=== PATIENT | female | born 1985 | race Caucasian/White ===

== ENCOUNTER 2024-09-11 18:25 | Inpatient (IN) | payer OTHER, SELFPAY ==
[2024-09-11 18:26] VITALS: BP 125/98; PULSE 94; RESP 15; TEMP 36.8; O2SAT 99; BMI 38.7
--- NOTE | 2024-09-11 19:10 | CT_ITS ---
We are attempting to reach an attending provider to discuss findings. An addendum with communication details will be sent when the communication is complete. EXAM: CT ABDOMEN AND PELVIS WITH INTRAVENOUS CONTRAST CLINICAL INDICATION: jaundice TECHNIQUE: Helically acquired images were obtained of the abdomen and pelvis with intravenous contrast. This CT exam was performed using one or more of the following dose reduction techniques: automated exposure control, adjustment of the mA and/or kV according to patient size, and/or use of iterative reconstruction technique. CONTRAST: IV 100mL Isovue-370 RADIATION DOSE: CTDIvol = 15.75 mGy, DLP = 1212.87 mGy-cm. COMPARISON: No relevant prior studies available. FINDINGS: LOWER THORAX: Unremarkable. Lung bases are clear. No cardiomegaly. No significant pericardial effusion. ABDOMEN: LIVER: Unremarkable. Homogeneous. No focal mass. GALLBLADDER AND BILE DUCTS: There is prominent common duct dilatation to 2 stones in the distal common duct, the most distal and larger stone just proximal to the ampulla and measures 7 mm x 5 mm x 4 mm. Slightly more proximal stone is roughly 4 mm. Mid and inferior portion of the duct is 1.2 cm, proximal common duct. At least 1.5 cm. There is diffuse mild-moderate intrahepatic duct dilatation. The gallbladder is markedly distended, 7 cm AP, with at least 3 dependent small stones in the body, and distended tortuous cystic duct. No cystic duct or neck stone is seen. The gallbladder wall is 2.6 mm despite distention, appears slightly thickened considering the prominent gallbladder distention. PANCREAS: Unremarkable. No focal cystic or solid mass. SPLEEN: Unremarkable. Normal size without focal cystic or solid mass. ADRENALS: Unremarkable. No nodules. KIDNEYS AND URETERS: Unremarkable. Normal renal size and position. No hydronephrosis. STOMACH AND BOWEL: Mildly prominent gas in multiple small bowel loops suggesting ileus. Only mild stool in the right colon, mild-moderate gas in most of the colon and rectum. No stomach or bowel distention. No focal inflammatory change. PELVIS: APPENDIX: Normal retrocecal appendix is seen. BLADDER: Unremarkable. REPRODUCTIVE: Tampon in the vagina. Presumed dominant follicle in the right ovary, it appears fairly simple, roughly 2 cm x 2.2 cm x 1.9 cm. ABDOMEN and PELVIS: INTRAPERITONEAL SPACE: Unremarkable. No ascites or other fluid collection. No free air. BONES/JOINTS: Unremarkable. No suspicious lytic or blastic abnormality. SOFT TISSUES: Unremarkable. No discrete abdominal or pelvic wall hernia. VASCULATURE: Unremarkable. Abdominal aorta is non-dilated. LYMPH NODES: Unremarkable. No enlarged lymph nodes. CT/Abdomen/Pelvis W IV Cont ONLY IMPRESSION: 1. Choledocholithiasis, 2 stones in the distal common duct. 2. Prominent intrahepatic and extrahepatic biliary distention. 3. Marked gallbladder distention and cholelithiasis. Subjectively slightly thickened gallbladder wall considering the marked gallbladder distention. 4. 2 cm dominant right ovarian follicle. This does not require additional evaluation. 5. Mild ileus. Electronically Signed: Ana M Arreaga MD at 22:05 EST ,
[2024-09-11 19:24] LABS: Absolute Lymphocyte Count 1.87 X10^3/uL (0.83-4.51); Absolute Neutrophil Count 4.4 X10^3/uL (2.0-7.7); Basophil% 1.4 % (0-1); Eosinophils% 4.1 % (0-5); Hematocrit 39.8 % (37-47); Hemoglobin 13.2 g/dL (12.0-15.0); Lymphocyte # 1.87 X10^3/ul (0.83-4.51); Lymphocyte % 25.4 % (19-41); Mean Corp Hgb Conc 33.2 g/dL (32-36); Mean Corpuscular Hgb 28.1 pg (27.0-32.0); Mean Corpuscular Volume 84.7 fL (81-99); Mean Platelet Vol. 9.9 fl (6.2-12.0); Monocyte% 9.5 % (0-10); NRBC Flagged by Analyzer 0 % (0-5); Neutrophil # 4.37 X10^3/uL (2.7-7.7); Neutrophil % 59.3 % (47-70); Platelet Count 324 K/mm3 (150-450); RBC Distribution Width CV 15.1 % (11.6-14.6); RBC Distribution Width SD 46.7 fl (35.1-43.9); White Blood Count 7.4 K/mm3 (4.4-11.0)
[2024-09-11 19:38] LABS: ALB/GLOB Ratio 0.7 RATIO (0.9-2.4); AST(SGOT) 160 U/L (15-37); Alanine Aminotransfer ALT/SGPT 291 U/L (13-56); Albumin, Serum 3.5 g/dL (3.2-5.0); Alkaline Phosphatase 218 U/L (45-117); Anion Gap 6 (5-15); BUN 8 mg/dL (7-18); BUN/Creat Ratio 8.7 RATIO (10-20); Calcium,Total 9.7 mg/dL (8.5-10.1); Chloride 101 mmol/L (98-107); Creatinine, Serum 0.92 mg/dL (0.55-1.02); EST Glomerular Filtration Rate 72 mL/min (>60); Est Glom Filt Rate - Afr Amer 87 mL/min (>60); Estimated Creatinine Clearance 94.73 ml/min; Globulin 4.7 g/dL (2.2-4.2); Glucose 102 mg/dL (74-106); Lipase 16 U/L (13-75); Potassium 3.8 mmol/L (3.5-5.1); Protein, Total 8.2 g/dL (6.4-8.2); Sodium Level 134 mmol/L (136-145)
[2024-09-11 19:47] LABS: Internal QC Validated? YES +Cl - CLEAR BKGD; Pregnancy, Serum, hCG Quali. NEGATIVE Negative
--- NOTE | 2024-09-11 20:29 | EDS_ITS ---
HPI <XENA Short - Last Filed: 09/11/24 21:42> History of Present Illness Chief Complaint: Abn Labs Narrative Narrative: Patient presenting today due to concerns for jaundice that started about a week ago. She reports that she initially noticed her urine was becoming darker in color, she then noticed her eyes turn yellow and her skin was becoming yellow. She contacted her PCP who ordered labs and ultrasound, she had that performed today and was told that she had stones in her gallbladder and to come to the emergency department for evaluation. She denies any history of abdominal surgery, alcohol use, fevers, chills, abdominal pain, nausea, and vomiting. She denies any chronic medical conditions. PFSH <XENA Short - Last Filed: 09/11/24 21:42> [facility] Medical History Basal cell carcinoma Medical History no medical history Allergy/AdvReac Type Severity Reaction Status Date / Time No Known Allergies Allergy Verified 09/11/24 18:26 Surgical History no surgical history Social History Smoking Status: Never smoker ROS <XENA Short - Last Filed: 09/11/24 21:42> ROS ED Constitutional Constitutional ED: Denies chills or fever(s) Cardiovascular Cardiovascular: Denies chest pain Respiratory/Chest Respiratory/Chest: Denies dyspnea Gastrointestinal Gastrointestinal: Denies abdominal pain, diarrhea, nausea or vomiting Genitourinary Genitourinary ED: Denies dysuria, hematuria or urinary urgency Musculoskeletal Musculoskeletal: Denies arthralgias or myalgias Integumentary Denies rash Neurologic Neurologic: Denies weakness EXAM <XENA Short - Last Filed: 09/11/24 21:42> Physical Exam Const Vital Signs: 09/11/24 18:26 09/11/24 18:43 09/11/24 20:42 Temperature 98.2 F Temperature Source Temporal Pulse Rate 94 79 Respiratory Rate 15 16 Respiratory Effort Normal Respiratory Pattern Normal Blood Pressure 125/98 H 117/70 Blood Pressure Mean 107 85 Pulse Ox 99 98 Oxygen Delivery Method Room Air Positive well nourished, well developed and no apparent distress General Appearance ED: well developed HEENT Reports normocephalic and head/scalp atraumatic HEENT Narrative: Scleral icterus Mouth ED: Yes moist mucous membranes normal Eyes PERRL and EOMs intact bilaterally Neck full ROM and supple Chest Wall inspection of chest normal Resp normal respiratory effort and clear to auscultation bilaterally Cardio regular rate and regular rhythm GI soft to palpation, non-tender, non-distended and no masses Back/Spine normal ROM and normal to inspection Extremity normal to inspection and full ROM Neuro oriented x3, CN's II-XII intact bilaterally, moves all extremities, no focal motor deficits and no sensory deficits noted Sensorium / Orientation: awake and alert Psych mental status grossly normal and thought process normal Skin no rashes or lesions noted and no wounds <Dr. Ian Enriquez DO - Last Filed: 09/11/24 21:44> Physical Exam Const Vital Signs: 09/11/24 18:26 09/11/24 18:43 09/11/24 20:42 Temperature 98.2 F Temperature Source Temporal Pulse Rate 94 79 Respiratory Rate 15 16 Respiratory Effort Normal Respiratory Pattern Normal Blood Pressure 125/98 H 117/70 Blood Pressure Mean 107 85 Pulse Ox 99 98 Oxygen Delivery Method Room Air [facility] <XENA Short - Last Filed: 09/11/24 21:42> [facility] Narrative Medical decision making narrative: Patient presenting today with jaundice that started last week. She had an ultrasound of her right upper quadrant performed today that was reviewed on clinisync and shows distended gallbladder, calculi present at the gallbladder neck and a dilated common bile duct at 11.2 mm. Labs obtained here. Her CBC is unremarkable, her sodium is 134, total bilirubin is 10.10, AST 160, ALT 291, alkaline phosphatase 218. CT scan of the abdomen and pelvis obtained, this shows choledocholithiasis. Dr. Jesus was consulted, patient given IV Zosyn. She will be admitted in stable condition. Lab Data Attestation: I reviewed the patient's lab results. Labs: Laboratory Results - last 24 hr 09/11/24 09/11/24 09/11/24 19:15 19:30 20:41 WBC 7.4 RBC 4.70 Hgb 13.2 Hct 39.8 MCV 84.7 MCH 28.1 MCHC 33.2 RDW Std Deviation 46.7 H RDW Coeff of Nayan 15.1 H Plt Count 324 MPV 9.9 Immature Gran % (Auto) 0.300 Neut % (Auto) 59.3 Lymph % (Auto) 25.4 [place] % (Auto) 9.5 Eos % (Auto) 4.1 Baso % (Auto) 1.4 H Absolute Neuts (auto) 4.4 Absolute Lymphs (auto) 1.87 Nucleated RBC % 0 Sodium 134 L Potassium 3.8 Chloride 101 Carbon Dioxide 27.0 Anion Gap 6 BUN 8 Creatinine 0.92 Estim Creat Clear Calc 94.73 Est GFR (MDRD) Af Amer 87 Est GFR (MDRD) Non-Af 72 BUN/Creatinine Ratio 8.7 L Glucose 102 Calcium 9.7 Total Bilirubin 10.10 H AST 160 H ALT 291 H Alkaline Phosphatase 218 H Total Protein 8.2 Albumin 3.5 Globulin 4.7 H Albumin/Globulin Ratio 0.7 L Lipase 16 Serum , Qual NEGATIVE Urine Color Yellow Urine Clarity Clear Urine pH 6.0 Ur Specific [place] 1.005 Urine Protein Negative Urine Glucose (UA) Normal Urine Ketones 5 H Urine Occult Blood 150 H Urine Nitrite Negative Urine Bilirubin 1 H Urine Urobilinogen 1 H Ur Leukocyte Esterase Negative Urine RBC 5-10 SEEN Urine WBC Not Reportable Ur Squamous Epith Cells 0-5 SEEN Urine Bacteria RARE Urine Mucus 0 SEEN <Dr. Ian Enriquez, DO - Last Filed: 09/11/24 21:44> [facility] Narrative Medical decision making narrative: Patient presenting today with jaundice that started last week. She had an ultrasound of her right upper quadrant performed today that was reviewed on clinisync and shows distended gallbladder, calculi present at the gallbladder neck and a dilated common bile duct at 11.2 mm. Labs obtained here. Her CBC is unremarkable, her sodium is 134, total bilirubin is 10.10, AST 160, ALT 291, alkaline phosphatase 218. CT scan of the abdomen and pelvis obtained, this shows choledocholithiasis. Dr. Jesus was consulted, patient given IV Zosyn. She will be admitted in stable condition. I have personally performed a face to face assessment of the patient and have reviewed the SARA Note. I performed a substantive portion of the visit including all aspects of the following. My crafword findings include: History is 38-year-old female presenting to the emergency room with painless jaundice. Patient states she had a gallbladder ultrasound performed at an outside hospital today that showed cholelithiasis and a dilated common bile duct. Is able to obtain a copy of this report using [employer]. Patient notes diarrhea with eating. She denies any significant pain. Exam is patient is jaundice. Guarding or rebound with palpation of the abdomen. Abdomen is not distended. Normal bowel sounds. Medical Decison Making patient's white count is 7.4 with no left shift. LFTs are elevated with a total bilirubin of 10.10 lipase is normal at [address] of the ab pelvis upon my review demonstrates a distended gallbladder with cholelithiasis and dilated common bile duct. There is a distal common bile duct stone noted. I reviewed the case with Dr. Jesus from general surgery and Dr. Cline from gastroenterology. Plan will be admission for ERCP/cholecystectomy History & Record Review Discussion w/independent historian: Patient Additional record(s) reviewed:: Prior outpatient record Lab Data Labs: Laboratory Results - last 24 hr 09/11/24 09/11/24 09/11/24 19:15 19:30 20:41 WBC 7.4 RBC 4.70 Hgb 13.2 Hct 39.8 MCV 84.7 MCH 28.1 MCHC 33.2 RDW Std Deviation 46.7 H RDW Coeff of Nayan 15.1 H Plt Count 324 MPV 9.9 Immature Gran % (Auto) 0.300 Neut % (Auto) 59.3 Lymph % (Auto) 25.4 [place] % (Auto) 9.5 Eos % (Auto) 4.1 Baso % (Auto) 1.4 H Absolute Neuts (auto) 4.4 Absolute Lymphs (auto) 1.87 Nucleated RBC % 0 Sodium 134 L Potassium 3.8 Chloride 101 Carbon Dioxide 27.0 Anion Gap 6 BUN 8 Creatinine 0.92 Estim Creat Clear Calc 94.73 Est GFR (MDRD) Af Amer 87 Est GFR (MDRD) Non-Af 72 BUN/Creatinine Ratio 8.7 L Glucose 102 Calcium 9.7 Total Bilirubin 10.10 H AST 160 H ALT 291 H Alkaline Phosphatase 218 H Total Protein 8.2 Albumin 3.5 Globulin 4.7 H Albumin/Globulin Ratio 0.7 L Lipase 16 Serum , Qual NEGATIVE Urine Color Yellow Urine Clarity Clear Urine pH 6.0 Ur Specific [place] 1.005 Urine Protein Negative Urine Glucose (UA) Normal Urine Ketones 5 H Urine Occult Blood 150 H Urine Nitrite Negative Urine Bilirubin 1 H Urine Urobilinogen 1 H Ur Leukocyte Esterase Negative Urine RBC 5-10 SEEN Urine WBC Not Reportable Ur Squamous Epith Cells 0-5 SEEN Urine Bacteria RARE Urine Mucus 0 SEEN Management Discussion w/another healthcare provider: Leadership Development Consultant (Dalia Jesus and Friend) Discharge Plan Dx/Rx/DC Orders Clinical Impression: Choledocholithiasis with obstruction Disposition Disposition: [facility]
[2024-09-11 20:42] VITALS: BP 117/70; PULSE 79; RESP 16; O2SAT 98
[2024-09-11 20:48] LABS: Mucous, Urine 0 SEEN /hpf (<or=2+)
[2024-09-11 20:53] LABS: Color, Urine Yellow (Yellow); Glucose, Dipstick Normal (Normal); Ketone-Dipstick 5 mg/dl (Negative); Leukocyte Esterase-Dipstick Negative /ul (Negative); Nitrite-Dipstick Negative (Negative); Occult Blood-Urine 150 /ul (Negative); Protein-Dipstick Negative (Negative); Specific Gravity, Urine 1.005 (1.002-1.030); Urine Clarity Clear (Clear); Urine Urobilinogen 1 mg/dl (Normal)
[2024-09-11 20:59] LABS: Urine Bilirubin Dipstick 1 mg/dL (Negative)
[2024-09-11 21:04] LABS: Bacteria RARE /hpf (None Seen); Red Blood Cells-Urine 5-10 SEEN /hpf (0-5); Squamous Epithelial Cells - UA 0-5 SEEN /hpf (5-10)
--- NOTE | 2024-09-11 21:22 | PCM.HP.STD ---
HPI - General General Date of Admission: 09/11/24 HPI Narrative DIONISIO ALLEN, is a 38 F who presents to [facility] ER on direction from gastroenterology after she completed a outpatient ultrasound through [facility] earlier today. She shares that she had presented to her primary care provider after several weeks of noticing yellowing of her skin, darkening of her urine, lightening of her stool, weight loss and anorexia/nausea as well as some generalized itching. When queried as to why she did not present earlier she stated that she believed it was just manifestation of dehydration and she confirms that she has had no pain with this whole episode. Patient's ER visit was marked by CMP that showed evidence of transaminitis as well as hyperbilirubinemia up to 10. Emergency medicine obtained a CT scan of the abdomen pelvis which is yet to be read but shows clear evidence of a distal common bile duct stone at the ampulla. Patient denies any regular medical diagnoses but does have a history of basal cell carcinoma. She denies any history of abdominal surgeries. [facility] Medical History Basal cell carcinoma Medical History no medical history Allergy/AdvReac Type Severity Reaction Status Date / Time No Known Allergies Allergy Verified 09/11/24 18:26 Surgical History no surgical history Social History Smoking Status: Never smoker Vital Signs Vital Signs Vital Signs: 09/11/24 18:26 09/11/24 18:43 09/11/24 20:42 Temperature 98.2 F Temperature Source Temporal Pulse Rate 94 79 Respiratory Rate 15 16 Respiratory Effort Normal Respiratory Pattern Normal Blood Pressure 125/98 H 117/70 Blood Pressure Mean 107 85 Pulse Ox 99 98 Oxygen Delivery Method Room Air Weight Weight: 225 lb 15.581 oz Body Mass Index (BMI) 38.7 Physical Exam Const alert, oriented x3 and no apparent distress Constitutional Narrative: Jaundiced Resp normal respiratory effort GI GI Narrative: Obese, superficial excoriations from itching, yellowing of the skin, nondistended, soft, no scars, no visible or palpable herniation, nontender to palpation, negative Sandhu sign Results Lab / Micro Data 09/11/24 19:15 09/11/24 19:15 Labs: Laboratory Results - last 24 hr 09/11/24 19:15: WBC 7.4, RBC 4.70, Hgb 13.2, Hct 39.8, MCV 84.7, MCH 28.1, MCHC 33.2, RDW Std Deviation 46.7 H, RDW Coeff of Nayan 15.1 H, Plt Count 324, MPV 9.9, Immature Gran % (Auto) 0.300, Neut % (Auto) 59.3, Lymph % (Auto) 25.4, [place] % (Auto) 9.5, Eos % (Auto) 4.1, Baso % (Auto) 1.4 H, Absolute Neuts (auto) 4.4, Absolute Lymphs (auto) 1.87, Nucleated RBC % 0, Sodium 134 L, Potassium 3.8, Chloride 101, Carbon Dioxide 27.0, Anion Gap 6, BUN 8, Creatinine 0.92, Estim Creat Clear Calc 94.73, Est GFR (MDRD) Af Amer 87, Est GFR (MDRD) Non-Af 72, BUN/Creatinine Ratio 8.7 L, Glucose 102, Calcium 9.7, Total Bilirubin 10.10 H, AST 160 H, ALT 291 H, Alkaline Phosphatase 218 H, Total Protein 8.2, Albumin 3.5, Globulin 4.7 H, Albumin/Globulin Ratio 0.7 L, Lipase 16 09/11/24 19:30: Serum , Qual NEGATIVE 09/11/24 20:41: Urine Color Yellow, Urine Clarity Clear, Urine pH 6.0, Ur Specific [place] 1.005, Urine Protein Negative, Urine Glucose (UA) Normal, Urine Ketones 5 H, Urine Occult Blood 150 H, Urine Nitrite Negative, Urine Bilirubin 1 H, Urine Urobilinogen 1 H, Ur Leukocyte Esterase Negative, Urine RBC 5-10 SEEN, Urine WBC Not Reportable, Ur Squamous Epith Cells 0-5 SEEN, Urine Bacteria RARE, Urine Mucus 0 SEEN Assessment & Plan Assessment/Plan (1) Choledocholithiasis with obstruction: PLAN: Patient 38-year-old female who is evaluated for new diagnosis of choledocholithiasis after several week history of being jaundice, anorexic, mildly nauseous, acholic stools, but no abdominal pain. She completed outpatient ultrasound earlier today which apparently showed some ductal dilatation but no clear evidence of an obstructing stone. CT imaging completed here in the emergency department appears to show a stone at the ampulla of Vater. I contacted gastroenterology to confirm their availability for ERCP and then presented to patient's bedside. Patient's story is given in the HPI above but this appears to be a relatively straightforward case of choledocholithiasis without evidence of cholecystitis, pancreatitis, or cholangitis. Diagnosis was outlined to the patient and her using hand drawings to illustrate relevant anatomy. I discussed that we would plan for admission with IV antibiotic therapy and tentatively plan for ERCP to be completed by gastroenterology tomorrow. With patient's severely elevated bilirubin I suggested there is a likely role for biliary tree decompression before proceeding with cholecystectomy. Thus, I would like to tentatively plan for outpatient cholecystectomy in another week or 2. We will seek operating room availability. ?Patient to be offered clear liquid diet this evening but then assume n.p.o. status affected midnight anticipation of procedure ? Consult to gastroenterology Nader eJsus MD General Surgery Endocrine Surgery Pager: [facility] [address] [place] [address], [facility], [address] [place] [address] Office: [phone] Charges/Coding Visit Charges Inpatient E&M: 18502 Init Hosp L2
[2024-09-11] MEDS: Piperacil/Tazobactam 4.5 GM in 0.9% Normal Saline (100mL MB+) 100 ML IV (21:35)
[2024-09-11] MEDS: 0.9% Normal Saline (1000mL) 1,000 ML 100 ML IV (21:36)
[2024-09-11 21:37] VITALS: BP 122/76; PULSE 75; RESP 17; TEMP 36.7; O2SAT 97
[2024-09-11 21:38] VITALS: BP 122/76; PULSE 75; RESP 18; TEMP 36.7; O2SAT 97
[2024-09-11 22:13] VITALS: BMI 38.5
[2024-09-11 22:26] VITALS: BP 114/72; PULSE 69; RESP 18; TEMP 36.9; O2SAT 100
--- NOTE | 2024-09-11 22:31 | EKG12_ITS ---
Test Reason : AM EKG Blood Pressure : */* mmHG Vent. Rate : 62 BPM Atrial Rate : 62 BPM P-R Int : 154 ms QRS Dur : 78 ms QT Int : 486 ms P-R-T Axes : 46 11 44 degrees QTcB Int : 493 ms Normal sinus rhythm with sinus arrhythmia Low voltage QRS Nonspecific ST and T wave abnormality Prolonged QT Abnormal ECG Confirmed by ANDRE ROJAS, OSMAN ([id number]), assistant editor KODAK BAUER ([id number]) on 09/17/2024 2:37:56 PM Referred By: KIM Confirmed By: OSMAN POWELL MD
[2024-09-12] VITALS (10 sets, daily range): BP systolic 106–122; BP diastolic 58–73; PULSE 65–86; RESP 13–16; TEMP 36.4–36.8; O2SAT 92–99
[2024-09-12] MEDS: Piperacil/Tazobactam 3.375 GM in 0.9% Normal Saline (50mL MB+) 50 ML IV ×3 (05:38→22:53)
[2024-09-12 07:32] LABS: Absolute Lymphocyte Count 1.38 X10^3/uL (0.83-4.51); Absolute Neutrophil Count 2.7 X10^3/uL (2.0-7.7); Basophil# 0.07 X10^3/uL; Basophil% 1.4 % (0-1); Eosinophil# 0.35 X10^3/uL; Eosinophils% 7.1 % (0-5); Hematocrit 38.1 % (37-47); Hemoglobin 12.2 g/dL (12.0-15.0); Lymphocyte # 1.38 X10^3/ul (0.83-4.51); Lymphocyte % 27.8 % (19-41); Mean Corpuscular Hgb 27.5 pg (27.0-32.0); Mean Corpuscular Volume 85.8 fL (81-99); Mean Platelet Vol. 9.8 fl (6.2-12.0); Monocyte# 0.49 X10^3/uL; Monocyte% 9.9 % (0-10); NRBC Flagged by Analyzer 0 % (0-5); Neutrophil # 2.66 X10^3/uL (2.7-7.7); Neutrophil % 53.6 % (47-70); Platelet Count 306 K/mm3 (150-450); RBC Distribution Width CV 15.5 % (11.6-14.6); RBC Distribution Width SD 48.5 fl (35.1-43.9); Red Blood Count 4.44 M/mm3 (4.2-5.4)
--- NOTE | 2024-09-12 08:03 | PN.SURG_ITS ---
Subjective Subjective Patient seen and examined during AM rounds. She is found resting in bed. She denies any discomfort. She states she rested well overnight. Gastroenterology is yet to visit. Objective Data Objective Data Vital Signs: Vital Signs Temp Pulse Resp BP Pulse Ox O2 Del Method 98 F 65 13 113/71 99 Room Air 09/12/24 04:30 09/12/24 04:30 09/12/24 04:30 09/12/24 04:30 09/12/24 04:30 09/12/24 04:30 Oxygen Delivery Method Room Air Weight: 224 lb 6.889 oz Body Mass Index (BMI) 38.5 Intake & Output: Intake and Output for Last 24 Hours 09/10/24 09/11/24 09/12/24 23:59 23:59 23:59 Intake Total 100 / 100 Balance 100 / 100 Lab / Micro Data 09/12/24 06:50 09/12/24 06:50 Labs: Laboratory Results - last 24 hr 09/11/24 19:15: WBC 7.4, RBC 4.70, Hgb 13.2, Hct 39.8, MCV 84.7, MCH 28.1, MCHC 33.2, RDW Std Deviation 46.7 H, RDW Coeff of Nayan 15.1 H, Plt Count 324, MPV 9.9, Immature Gran % (Auto) 0.300, Neut % (Auto) 59.3, Lymph % (Auto) 25.4, [place] % (Auto) 9.5, Eos % (Auto) 4.1, Baso % (Auto) 1.4 H, Absolute Neuts (auto) 4.4, Absolute Lymphs (auto) 1.87, Nucleated RBC % 0, Sodium 134 L, Potassium 3.8, Chloride 101, Carbon Dioxide 27.0, Anion Gap 6, BUN 8, Creatinine 0.92, Estim Creat Clear Calc 94.73, Est GFR (MDRD) Af Amer 87, Est GFR (MDRD) Non-Af 72, B UN/Creatinine Ratio 8.7 L, Glucose 102, Calcium 9.7, Total Bilirubin 10.10 H, A ST 160 H, ALT 291 H, Alkaline Phosphatase 218 H, Total Protein 8.2, Albumin 3.5, Globulin 4.7 H, Albumin/Globulin Ratio 0.7 L, Lipase 16 09/11/24 19:30: Serum , Qual NEGATIVE 09/11/24 20:41: Urine Color Yellow, Urine Clarity Clear, Urine pH 6.0, Ur Specific [place] 1.005, Urine Protein Negative, Urine Glucose (UA) Normal, Urine Ketones 5 H, Urine Occult Blood 150 H, Urine Nitrite Negative, Urine Bilirubin 1 H, Urine Urobilinogen 1 H, Ur Leukocyte Esterase Negative, Urine RBC 5-10 SEEN, Urine WBC Not Reportable, Ur Squamous Epith Cells 0-5 SEEN, Urine Bacteria RARE, Urine Mucus 0 SEEN 09/12/24 06:50: WBC 5.0, RBC 4.44, Hgb 12.2, Hct 38.1, MCV 85.8, MCH 27.5, MCHC 32.0, RDW Std Deviation 48.5 H, RDW Coeff of Nayan 15.5 H, Plt Count 306, MPV 9.8, Immature Gran % (Auto) 0.200, Neut % (Auto) 53.6, Lymph % (Auto) 27.8, [place] % (Auto) 9.9, Eos % (Auto) 7.1 H, Baso % (Auto) 1.4 H, Absolute Neuts (auto) 2.7, Absolute Lymphs (auto) 1.38, Nucleated RBC % 0 Radiography Diagnostic Testing: Radiology Impression Abdomen/Pelvis CT 09/11/24 19:10 IMPRESSION: 1. Choledocholithiasis, 2 stones in the distal common duct. 2. Prominent intrahepatic and extrahepatic biliary distention. 3. Marked gallbladder distention and cholelithiasis. Subjectively slightly thickened gallbladder wall considering the marked gallbladder distention. 4. 2 cm dominant right ovarian follicle. This does not require additional evaluation. 5. Mild ileus. Electronically Signed: Ana M Arreaga MD at 22:05 EST , ADDENDUM: 09/11/24 5831 IMPRESSION: 1. Choledocholithiasis, 2 stones in the distal common duct. 2. Prominent intrahepatic and extrahepatic biliary distention. 3. Marked gallbladder distention and cholelithiasis. Subjectively slightly thickened gallbladder wall considering the marked gallbladder distention. 4. 2 cm dominant right ovarian follicle. This does not require additional evaluation. 5. Mild ileus. N.B. : The above Results were Read Back by Ana M Arreaga MD to Dr. Zoe MD, and understanding confirmed on 09/11/2024 22:36:31 (ET). Electronically Signed: Ana M Arreaga MD at 22:05 EST Reading Location ID and State: [facility] / [place] Tel , Service support , Physical Exam Const oriented x3 and no apparent distress Resp normal respiratory effort GI GI Narrative: Jaundiced, nondistended, soft, no tenderness to palpation x 4 quadrants Assessment & Plan Assessment/Plan (1) Choledocholithiasis with obstruction: PLAN: Patient 38-year-old female who is evaluated for new diagnosis of choledocholithiasis after several week history of being jaundice, anorexic, mildly nauseous, acholic stools, but no abdominal pain. Patient is doing well and clinically stable. She remains n.p.o. in anticipation of ERCP by gastroenterology later today. We will see how she comes through this procedure but tentatively planning for discharge following this procedure with short interval outpatient follow-up for cholecystectomy. Date has been set for 09/22/2024. Patient to be seen by Dr. Baig over the weekend. Nader Jesus MD General Surgery Endocrine Surgery Pager: [facility] [address] [place] [address], [facility], [address] [place] [id number] Office: [phone] Charges/Coding Visit Charges Inpatient E&M: 40748 Subs Hosp L2
[2024-09-12 08:15] LABS: ALB/GLOB Ratio 0.7 RATIO (0.9-2.4); AST(SGOT) 154 U/L (15-37); Alanine Aminotransfer ALT/SGPT 255 U/L (13-56); Alkaline Phosphatase 200 U/L (45-117); Anion Gap 6 (5-15); BUN 6 mg/dL (7-18); BUN/Creat Ratio 6.6 RATIO (10-20); Calcium,Total 9.2 mg/dL (8.5-10.1); Chloride 105 mmol/L (98-107); Creatinine, Serum 0.91 mg/dL (0.55-1.02); EST Glomerular Filtration Rate 73 mL/min (>60); Est Glom Filt Rate - Afr Amer 88 mL/min (>60); Globulin 4.3 g/dL (2.2-4.2); Glucose 90 mg/dL (74-106); Protein, Total 7.3 g/dL (6.4-8.2); Sodium Level 136 mmol/L (136-145)
[2024-09-12] MEDS: 0.9% Normal Saline (1000mL) 1,000 ML 100 ML IV (11:23)
--- NOTE | 2024-09-12 15:59 | PRE.ANES_ITS ---
ASA Classification* ASA Classification ASA Classification: 2 Assessment & Plan Anesthesia* Anesthesia Assessment Anesthesia Assessment: Discussed sedation and/or anesthesia options, risks, benefits, and alternatives with patient/parents/legal guardian/POA. Questions invited. The patient/parents/legal guardian/POA seems to understand and agrees to proceed with anesthesia plan. Reviewed the physical assessment, medical history, allergy history and patient home medications list prior to surgery/procedure/anesthetic and documented any changes. Performed airway and anesthesia risk assessments. Anesthesia Type Anesthesia Type: General History Source History Obtained from:: Patient and Chart Anesthesia Focused Assessment* Temperature: 98.2 F Pulse Rate: 80 Blood Pressure: 122/68 Respiratory Rate: 16 Pulse Ox: 99 Oxygen Delivery Method: Room Air Airway Assessment Mouth opens: >3 cm Mallampati Score: I Teeth Condition: Missing (Missing right lower molar in the back. Rest of the teeth are tight) Neck Range of motion (ROM): Full ROM Focused Labs Anesthesia Preop lab: CBC WBC 5.0 K/mm3 (4.4-11.0) 09/12/24 06:50 RBC 4.44 M/mm3 (4.2-5.4) 09/12/24 06:50 Hgb 12.2 g/dL (12.0-15.0) 09/12/24 06:50 Hct 38.1 % (37-47) 09/12/24 06:50 Plt Count 306 K/mm3 (150-450) 09/12/24 06:50 CHEMISTRY Potassium 4.0 mmol/L (3.5-5.1) 09/12/24 06:50 Sodium 136 mmol/L (136-145) 09/12/24 06:50 BUN 6 mg/dL (7-18) L 09/12/24 06:50 Creatinine 0.91 mg/dL (0.55-1.02) 09/12/24 06:50 Glucose 90 mg/dL (74-106) 09/12/24 06:50 TSH 1.86 uIU/mL (0.358-3.74) 03/02/15 16:30 COAG Pre-Assessment Diagnosis/Proposed Procedure Planned Operative Procedure(s): Endoscopic retrograde cholangiopancreatography Anesthesia History Anesthesia History - certified health education specialist: Anesthesia History - certified health education specialist Hx Hospitalization Any Problems With Anesthesia No 09/11/24 22:19 Cholinesterase deficiency No 09/11/24 22:19 You/Your Family Experience No 09/11/24 22:19 fever (hyperthermia) with Relationship Recent Exposure to Contagious No 09/11/24 22:19 Disease Does patient have nerve No 09/11/24 22:19 stimulator Patient instructed to have No 09/11/24 22:19 device shut off --Does patient have Pacemaker or ICD? When Was Last Pacemaker Check QUESTION #4 FULL TEXT: You/Your Family Experience fever (hyperthermia) with Anesthesia Last Oral Intake Last Oral intake: Last Oral Intake NPO since Meds taken in AM with sips of water? Meds patient instructed to take am of surgery Any additional information?: Yes NPO since: 00:00 Meds taken in AM with sips of water?: No PONV PONV - certified health education specialist: PONV - certified health education specialist Female HX of Motion Sickness HX of N/V After Surgery Non-Smoker Duration of Surgery greater than 60 minutes Number of Risk Factors PONV Score Height & Weight Height & Weight: Anesthesia: Height & Weight Height 5 ft 4 in 09/11/24 22:13 Weight: 101.8 kg 09/11/24 22:13 Body Mass Index (BMI) 38.5 09/11/24 22:13 Respiratory Assessment Respiratory Assessment - certified health education specialist: Respiratory Tract Infection Hx - certified health education specialist Hx Respiratory Tract Infection No 09/11/24 22:19 STOP Sleep Apnea STOP Sleep Apnea - certified health education specialist: STOP Sleep Apnea - certified health education specialist Hx Hypertension No 09/11/24 22:14 Hx Sleep Apnea No 09/11/24 22:14 CPAP BIPAP Do you snore loudly (louder No 09/11/24 22:14 than talking or can be heard Do you often feel tired/ No 09/11/24 22:14 fatigued/ sleepy during daytime? Has anyone observed you stop No 09/11/24 22:14 breathing during sleep? STOP Results Negative 09/11/24 22:14 QUESTION #5 FULL TEXT : Do you snore loudly (louder than talking or can be heard through closed doors)? Tobacco Use History Tobacco Use History - certified health education specialist: Tobacco Use History - certified health education specialist Tobacco Use Smoking Status Never smoker 09/11/24 22:14 Hx Tobacco Use No 09/11/24 22:14 Years Smoking Packs Smoked per Day Smoking Cessation Date was within the last 15 years Hx Smoking Cessation Date Hx Smoking Cessation Counseling Hematologic Medial History Hematologic Hx - certified health education specialist: Hematologic Medical Hx - clinical documentation manager Hx of Blood Transfusion No 09/11/24 22:14 Hx of Transfusion in last 3 No 09/11/24 22:14 Months Date of Last Transfusion (if within last 3 months) Ever experience any problems No 09/11/24 22:14 with transfusion(s)? Specify any problems Hx of Preganancy in last 3 No 09/11/24 22:14 Months Nurse Filling Out Transfusion DREDICK 09/11/24 22:14 & Questions: Date: 09/11/24 09/11/24 22:14 Time: 22:15 09/11/24 22:14 Patient unable to answer at this time (ie. confused, unrespo /Reproduction History /Reproductive History - certified health education specialist: /Reproductive Hx- certified health education specialist Hx Now No 09/11/24 22:19 Gestational Age (in weeks): EDC: Hx Hx Para Hx Section SAB No 09/11/24 22:19 Active Medications Active Medications: Current Medications Generic Name Dose Route Start Last Admin Trade Name Freq PRN Reason Stop Dose Admin Acetaminophen 500 mg 09/11/24 21:17 Acetaminophen 500 Mg Tablet PO Q6H PRN PRN Pain Score 1-10 Sodium Chloride 1,000 mls @ 100 mls/hr 09/11/24 21:20 09/12/24 11:23 IV 09/12/24 17:19 100 mls/hr .Q10H ALEJANDRINA Administration Protocol Piperacillin Sod/Tazobactam 50 mls @ 12.5 mls/hr 09/12/24 06:00 09/12/24 14:14 Sod 3.375 gm/ Sodium Chloride IV 12.5 mls/hr Q8 ALEJANDRINA Administration Sodium Chloride 100 mls @ 15 mls/hr 09/11/24 22:10 IV .Q6H40M PRN Saline Flush Sodium Chloride 100 mls @ 15 mls/hr 09/11/24 22:10 IV .Q6H40M PRN Additional IVPB Infusion Ondansetron HCl 4 mg 09/11/24 21:17 Ondansetron 4 Mg/2 Ml Vial IV Q6H PRN PRN NAUSEA/VOMITING Sodium Chloride 10 - 40 ml 09/11/24 22:10 0.9% Saline Lock 10 Ml Syringe IV UD PRN SALINE FLUSH PFSH Medical History Basal cell carcinoma Medical History no medical history Allergy/AdvReac Type Severity Reaction Status Date / Time No Known Allergies Allergy Verified 09/11/24 18:26 Surgical History no surgical history Social History Smoking Status: Never smoker Review of Systems (Anesthesia) ROS Narrative System reviewed and no additional complaints, except as documented.
--- NOTE | 2024-09-12 17:15 | EX.PCM.CON.G ---
HPI Consult Data Date of Consult: 09/12/24 HPI Narrative Reason for Consultation: Bile duct obstruction HPI Narrative: DIONISIO ALLEN, is a 38 F who presents today due to concerns for jaundice that started about a week ago. She reports that she initially noticed her urine was becoming darker in color, she then noticed her eyes turn yellow and her skin was becoming yellow. She contacted her PCP who ordered labs and ultrasound, she had that performed today and was told that she had stones in her gallbladder and to come to the emergency department for evaluation. She denies any history of abdominal surgery, alcohol use, fevers, chills, abdominal pain, nausea, and vomiting. She denies any chronic medical conditions. CT scan abdomen pelvis displayed: GALLBLADDER AND BILE DUCTS: There is prominent common duct dilatation to 2 stones in the distal common duct, the most distal and larger stone just proximal to the ampulla and measures 7 mm x 5 mm x 4 mm. Slightly more proximal stone is roughly 4 mm. Mid and inferior portion of the duct is 1.2 cm, proximal common duct. At least 1.5 cm. There is diffuse mild-moderate intrahepatic duct dilatation. The gallbladder is markedly distended, 7 cm AP, with at least 3 dependent small stones in the body, and distended tortuous cystic duct. No cystic duct or neck stone is seen. The gallbladder wall is 2.6 mm despite distention, appears slightly thickened considering the prominent gallbladder distention. [facility] Medical History Basal cell carcinoma Medical History no medical history Allergy/AdvReac Type Severity Reaction Status Date / Time No Known Allergies Allergy Verified 09/11/24 18:26 Surgical History no surgical history Social History Smoking Status: Never smoker ROS Constitutional Constitutional: Denies fatigue, fever(s), poor appetite, weight gain or weight loss Gastrointestinal Gastrointestinal: Denies belching, bloating, change in bowel habits, change in stool character, chewing difficulty, coffee ground emesis, constipation, cramping, diarrhea, dyspepsia, dysphagia, early satiety, excessive flatus, fecal incontinence, heartburn, hematemesis, hematochezia, hemorrhoids, loose stools, melena, nausea, odynophagia, rectal bleeding, tenesmus, vomiting or weight changes Physical Exam Const oriented x3 and no apparent distress Resp normal respiratory effort GI GI Narrative: Jaundiced, nondistended, soft, no tenderness to palpation x 4 quadrants Lab / Micro Data 09/12/24 06:50 09/12/24 06:50 Labs: Laboratory Results - last 24 hr 09/11/24 19:15: WBC 7.4, RBC 4.70, Hgb 13.2, Hct 39.8, MCV 84.7, MCH 28.1, MCHC 33.2, RDW Std Deviation 46.7 H, RDW Coeff of [place] 15.1 H, Plt Count 324, MPV 9.9, Immature Gran % (Auto) 0.300, Neut % (Auto) 59.3, Lymph % (Auto) 25.4, [place] % (Auto) 9.5, Eos % (Auto) 4.1, Baso % (Auto) 1.4 H, Absolute Neuts (auto) 4.4, Absolute Lymphs (auto) 1.87, Nucleated RBC % 0, Sodium 134 L, Potassium 3.8, Chloride 101, Carbon Dioxide 27.0, Anion Gap 6, BUN 8, Creatinine 0.92, Estim Creat Clear Calc 94.73, Est GFR (MDRD) Af Amer 87, Est GFR (MDRD) Non-Af 72, BUN/Creatinine Ratio 8.7 L, Glucose 102, Calcium 9.7, Total Bilirubin 10.10 H, AST 160 H, ALT 291 H, Alkaline Phosphatase 218 H, Total Protein 8.2, Albumin 3.5, Globulin 4.7 H, Albumin/Globulin Ratio 0.7 L, Lipase 16 09/11/24 19:30: Serum , Qual NEGATIVE 09/11/24 20:41: Urine Color Yellow, Urine Clarity Clear, Urine pH 6.0, Ur Specific [place] 1.005, Urine Protein Negative, Urine Glucose (UA) Normal, Urine Ketones 5 H, Urine Occult Blood 150 H, Urine Nitrite Negative, Urine Bilirubin 1 H, Urine Urobilinogen 1 H, Ur Leukocyte Esterase Negative, Urine RBC 5-10 SEEN, Urine WBC Not Reportable, Ur Squamous Epith Cells 0-5 SEEN, Urine Bacteria RARE, Urine Mucus 0 SEEN 09/12/24 06:50: WBC 5.0, RBC 4.44, Hgb 12.2, Hct 38.1, MCV 85.8, MCH 27.5, MCHC 32.0, RDW Std Deviation 48.5 H, RDW Coeff of [place] 15.5 H, Plt Count 306, MPV 9.8, Immature Gran % (Auto) 0.200, Neut % (Auto) 53.6, Lymph % (Auto) 27.8, [place] % (Auto) 9.9, Eos % (Auto) 7.1 H, Baso % (Auto) 1.4 H, Absolute Neuts (auto) 2.7, Absolute Lymphs (auto) 1.38, Nucleated RBC % 0, Sodium 136, Potassium 4.0, Chloride 105, Carbon Dioxide 25.0, Anion Gap 6, BUN 6 L, Creatinine 0.91, Estim Creat Clear Calc 95.40, Est GFR (MDRD) Af Amer 88, Est GFR (MDRD) Non-Af 73, BUN/Creatinine Ratio 6.6 L, Glucose 90, Calcium 9.2, Total Bilirubin 9.10 H, AST 154 H, ALT 255 H, Alkaline Phosphatase 200 H, Total Protein 7.3, Albumin 3.0 L, Globulin 4.3 H, Albumin/Globulin Ratio 0.7 L Imaging Radiology Impression Abdomen/Pelvis CT 09/11/24 19:10 IMPRESSION: 1. Choledocholithiasis, 2 stones in the distal common duct. 2. Prominent intrahepatic and extrahepatic biliary distention. 3. Marked gallbladder distention and cholelithiasis. Subjectively slightly thickened gallbladder wall considering the marked gallbladder distention. 4. 2 cm dominant right ovarian follicle. This does not require additional evaluation. 5. Mild ileus. Electronically Signed: Ana M Arreaga MD at 22:05 EST , ADDENDUM: 09/11/24 0508 IMPRESSION: 1. Choledocholithiasis, 2 stones in the distal common duct. 2. Prominent intrahepatic and extrahepatic biliary distention. 3. Marked gallbladder distention and cholelithiasis. Subjectively slightly thickened gallbladder wall considering the marked gallbladder distention. 4. 2 cm dominant right ovarian follicle. This does not require additional evaluation. 5. Mild ileus. N.B. : The above Results were Read Back by Ana M Arreaga MD to Dr. Zoe MD, and understanding confirmed on 09/11/2024 22:36:31 (ET). Electronically Signed: Ana M Arreaga MD at 22:05 EST , Assessment & Plan Assessment/Plan (1) Choledocholithiasis with obstruction: PLAN: Patient will undergo therapeutic ERCP. She was explained alternatives, risk and benefits include not withstanding bleeding, infection, sepsis, perforation, need for charge and . She will have an ASA of 3. Charges/Coding Visit Charges Inpatient E&M: 89166 Init Hosp L2
--- NOTE | 2024-09-12 19:20 | RAD_ITS ---
EXAM: FL FLUOROSCOPY < 1 HOUR CLINICAL INDICATION: PAIN TECHNIQUE: Fluoroscopic images performed in multiple projections. Fluoroscopic guidance was provided by a physician. Fluoroscopic time is 30.2 seconds. Total dose is 11.13 mGy. COMPARISON: No relevant prior studies available. FINDINGS AND RAD/ERCP Biliary/Pancreas IMPRESSION: ERCP examination. Refer to the operative/procedure note for complete details. Electronically Signed: Ramon Lyon DO at 11:17 EST ,
--- NOTE | 2024-09-12 19:28 | OP.ERCP_ITS ---
Patient Name: Munira Diaz Procedure Date: 09/12/2024 5:26 PM Date of : 1985 Age: 38 Procedure: ERCP Indications: Bile duct stone(s), Jaundice, Elevated liver enzymes Providers: Asif Cline DO Medicines: Monitored Anesthesia Care Patient Profile: This is a 38 year old female. Refer to note in patient chart for documentation of history and physical. This patient has no history of previous ERCP. This patient has no history of surgical alteration of the upper digestive tract anatomy. Complications: No immediate complications. Procedure: Pre-Anesthesia Assessment: - Prior to the procedure, a History and Physical was performed, and patient medications and allergies were reviewed. The patient is competent. The risks and benefits of the procedure and the sedation options and risks were discussed with the patient. All questions were answered and informed consent was obtained. Patient identification and proposed procedure were verified in the pre-procedure area. Mental Status Examination: alert and oriented. Airway Examination: normal oropharyngeal airway and neck mobility. Respiratory Examination: clear to auscultation. CV Examination: normal. Prophylactic Antibiotics: The patient does not require prophylactic antibiotics. Prior Anticoagulants: The patient has taken no anticoagulant or antiplatelet agents. ASA Grade Assessment: II - A patient with mild systemic disease. After reviewing the risks and benefits, the patient was deemed in satisfactory condition to undergo the procedure. The anesthesia plan was to use monitored anesthesia care (MAC). Immediately prior to administration of medications, the patient was re-assessed for adequacy to receive sedatives. The heart rate, respiratory rate, oxygen saturations, blood pressure, adequacy of pulmonary ventilation, and response to care were monitored throughout the procedure. The physical status of the patient was re-assessed after the procedure. After obtaining informed consent, the scope was passed under direct vision. Throughout the procedure, the patient's blood pressure, pulse, and oxygen saturations were monitored continuously. The Duodenoscope was introduced through the mouth, and advanced to the duodenum and used to inject contrast into the bile duct and ventral pancreatic duct. The ERCP was accomplished without difficulty. The patient tolerated the procedure well. Scope In: Scope Out: Findings: The welding estimator film was normal. The esophagus was successfully intubated under direct vision. The scope was advanced to a normal major papilla in the descending duodenum without detailed examination of the pharynx, larynx and associated structures, and upper GI tract. The upper GI tract was grossly normal. The bile duct was deeply cannulated with the short-nosed traction sphincterotome. Contrast was injected. I personally interpreted the bile duct images. There was brisk flow of contrast through the ducts. Image quality was adequate. Contrast extended to the biliary pancreatic junction. Contrast extended to the main bile duct. Contrast extended to the cystic duct. Contrast extended to the gallbladder. Contrast extended to the bifurcation. Contrast extended to the hepatic ducts. Contrast extended to the entire biliary tree. Opacification of the entire opacified area, biliary pancreatic junction, main bile duct, cystic duct, gallbladder, common hepatic duct, hepatic duct bifurcation, left and right hepatic ducts and all intrahepatic branches and entire biliary tree was successful. The maximum diameter of the ducts was 10 mm. The lower third of the main bile duct, middle third of the main bile duct, upper third of the main bile duct, common bile duct, cystic duct, gallbladder, hepatic duct bifurcation and right main hepatic duct contained multiple stones, the largest of which was 6 mm in diameter. The main bile duct and left and right hepatic ducts and all intrahepatic branches were moderately dilated and diffusely dilated, with a stone causing an obstruction. The largest diameter was 12 mm. A long 0.025 inch Jagwire was passed into the biliary tree. A 4 mm biliary sphincterotomy was made with a braided traction (standard) sphincterotome using ERBE electrocautery. Moderate bleeding from the sphincterotomy stopped within 5 minutes. The biliary tree was swept with a 12 mm balloon starting at the biliary pancreatic junction, upper third of the main bile duct, middle third of the main bile duct, bifurcation, left intrahepatic duct(s), left main hepatic duct, right intrahepatic duct(s) and right main hepatic duct. Sludge was swept from the duct. All stones were removed. Dilation of the lower third of the main bile duct, the left main hepatic duct and the right and left intrahepatic branches, but not the right or left hepatic ducts with a 12-13.5-15 mm balloon (to a maximum balloon size of 12 mm) dilator was successful. One 10 Fr by 7 cm temporary stent was placed 5 cm into the common bile duct. Bile flowed through the stent. The stent was in good position. One 7 Fr by 9 cm temporary stent was placed 5 cm into the common bile duct. Clear fluid flowed through the stent. The stent was in good position. Impression: - The entire main bile duct and left and right hepatic ducts and all intrahepatic branches were moderately dilated, with a stone causing an obstruction. - Choledocholithiasis was found. Complete removal was accomplished by biliary sphincterotomy and balloon extraction. - A biliary sphincterotomy was performed. - The biliary tree was swept. - The lower third of the main bile duct, the left main hepatic duct and the right and left intrahepatic branches, but not the right or left hepatic ducts were successfully dilated. - One temporary stent was placed into the common bile duct. - One temporary stent was placed into the common bile duct. Procedure Code(s): --- Professional --- 20476, Endoscopic retrograde cholangiopancreatography (ERCP); with placement of endoscopic stent into biliary or pancreatic duct, including pre- and post-dilation and guide wire passage, when performed, including sphincterotomy, when performed, each stent [id number], 59, Endoscopic retrograde cholangiopancreatography (ERCP); with placement of endoscopic stent into biliary or pancreatic duct, including pre- and post-dilation and guide wire passage, when performed, including sphincterotomy, when performed, each stent [id number], 59, Endoscopic retrograde cholangiopancreatography (ERCP); with trans-endoscopic balloon dilation of biliary/pancreatic duct(s) or of ampulla (sphincteroplasty), including sphincterotomy, when performed, each duct 19346, 51, Endoscopic retrograde cholangiopancreatography (ERCP); with removal of calculi/debris from biliary/pancreatic duct(s) 75116, 26, Endoscopic catheterization of the biliary ductal system, radiological supervision and interpretation CPT copyright 2021 [employer]. All rights reserved. The codes documented in this report are preliminary and upon channeler review may be revised to meet current compliance requirements. Asif Cline DO 09/12/2024 7:28:11 PM This report has been signed electronically. Number of Addenda: 0 Note Initiated On: 09/12/2024 5:26 PM
--- NOTE | 2024-09-12 19:28 | OP.CCLET_ITS ---
09/12/2024 Ruth Thomas Re : ERCP procedure for Munira Thomas This procedure was performed on Thursday, September 12, 2024. My impressions and recommendations are as follows: Impressions : - The entire main bile duct and left and right hepatic ducts and all intrahepatic branches were moderately dilated, with a stone causing an obstruction. - Choledocholithiasis was found. Complete removal was accomplished by biliary sphincterotomy and balloon extraction. - A biliary sphincterotomy was performed. - The biliary tree was swept. - The lower third of the main bile duct, the left main hepatic duct and the right and left intrahepatic branches, but not the right or left hepatic ducts were successfully dilated. - One temporary stent was placed into the common bile duct. - One temporary stent was placed into the common bile duct. Recommendations : My findings are described in the full procedure note, which is enclosed. If I can be of further assistance, please feel free to contact me at . Sincerely, Asif Cline DO 09/12/2024 7:28:11 PM This report has been signed electronically.
--- NOTE | 2024-09-12 19:34 | PCM.POST.ANE ---
Anesthesia: Postop Eval I Current Vital Signs Temperature: 98 F Pulse Rate: 85 Blood Pressure: 109/58 Respiratory Rate: 16 Pulse Ox: 94 Oxygen Delivery Method: Room Air Assessment Airway patent: Yes Spontaneous unlabored respirations: Yes nausea: No Vomiting: No Anesthesia Complication: No Fluid Hydration Crystalloid volume administer (ml): 400 Total IV fluid infused: 400 Progress Note Anesthesia document: Postop Eval 1 completed: Yes
--- NOTE | 2024-09-12 19:35 | PCM.POSTANE2 ---
Anesthesia Postop Eval I Sum Postop Eval Completion status Anesthesia document: Postop Eval 1 completed: Yes Anesthesia Postop Eval I Summary Anesthesia Postop Eval I Summary: Anesthesia Postop Eval I: Assessment Summary Airway patent Yes 09/12/24 19:35 Spontaneous unlabored Yes 09/12/24 19:35 respirations Mental status nausea No 09/12/24 19:35 Vomiting No 09/12/24 19:35 Anesthesia Postop Eval I: Fluid Summary Crystalloid volume administer 400 09/12/24 19:35 (ml) Colloids volume administered ( ml) Blood Product volume administered (ml) Total IV fluid infused 400 09/12/24 19:35 Anesthesia Postop Eval I: Summary Notes Anesthesia Complication No 09/12/24 19:35 Anesthesia Complication Comment: Post-operative progress note Anesthesia: Postop Eval II Evaluation Mental status: Awake Pain Level: 0 nausea: No Vomiting: No
[2024-09-12] MEDS: Ondansetron 4 MG/2 ML Vial IV (20:36)
[2024-09-13 00:39] VITALS: BP 113/66; PULSE 71; RESP 16; TEMP 36.6; O2SAT 96
[2024-09-13] MEDS: Acetaminophen 500 MG Tablet PO (00:44)
[2024-09-13 04:27] VITALS: BP 108/63; PULSE 62; RESP 16; TEMP 36.5; O2SAT 96
[2024-09-13] MEDS: Piperacil/Tazobactam 3.375 GM in 0.9% Normal Saline (50mL MB+) 50 ML IV (05:22)
--- NOTE | 2024-09-13 08:01 | PCM.PN.SRG ---
Subjective Subjective The patient is doing well with no pain. She reports that she tolerated clears. Objective Data Objective Data Vital Signs: Vital Signs Temp Pulse Resp BP Pulse Ox O2 Del Method 97.7 F L 62 16 108/63 96 Room Air 09/13/24 04:27 09/13/24 04:27 09/13/24 04:27 09/13/24 04:27 09/13/24 04:27 09/13/24 04:27 Oxygen Delivery Method Room Air Weight: 224 lb 6.889 oz Body Mass Index (BMI) 38.5 Intake & Output: Intake and Output for Last 24 Hours 09/11/24 09/12/24 09/13/24 23:59 23:59 23:59 Intake Total 100 / 100 2100 / 2300 450 / 450 Balance 100 / 100 2100 / 2300 450 / 450 Lab / Micro Data 09/12/24 06:50 09/12/24 06:50 Labs: Laboratory Results - last 24 hr 09/12/24 06:50: Sodium 136, Potassium 4.0, Chloride 105, Carbon Dioxide 25.0, Anion Gap 6, BUN 6 L, Creatinine 0.91, Estim Creat Clear Calc 95.40, Est GFR (MDRD) Af Amer 88, Est GFR (MDRD) Non-Af 73, BUN/Creatinine Ratio 6.6 L, Glucose 90, Calcium 9.2, Total Bilirubin 9.10 H, AST 154 H, ALT 255 H, Alkaline Phosphatase 200 H, Total Protein 7.3, Albumin 3.0 L, Globulin 4.3 H, Albumin/Globulin Ratio 0.7 L Physical Exam Const oriented x3 and no apparent distress Resp normal respiratory effort GI soft to palpation and non-tender Assessment & Plan Assessment/Plan (1) Choledocholithiasis with obstruction: QUALIFIERS: Cholecystitis presence: without cholecystitis Qualified Code(s): K80.51 - Calculus of bile duct without cholangitis or cholecystitis with obstruction PLAN: Patient had ERCP and is doing well. She has a stent in place. She will follow-up with Dr. Jesus to have elective cholecystectomy. Chris Baig MD Pager: [facility] [address] [place] [address], [address] [place] [address] Office:
--- NOTE | 2024-09-13 08:02 | DS.PCM_ITS ---
Providers Date of Admission: 09/12/24 Primary Care Physician: Ruth Thomas PA-C Consultations 09/11/24 21:21 Consult: Gastroenterology Routine Consulting Provider: Barak Navarreteology Reason for Consult: choledocholithiasis EMERGENT Consult: Yes MD Notified: Yes Date Notified: 09/11/24 Time Notified: 21:21 Method of Notification: Verbal Reason For Visit: CHOLEDOCHOLITHIASIS Diagnosis Discharge Diagnosis (1) Choledocholithiasis with obstruction: Status: Acute Code(s): K80.51 - Calculus of bile duct without cholangitis or cholecystitis with obstruction Qualifiers: Cholecystitis presence: without cholecystitis Qualified Code(s): K80.51 - Calculus of bile duct without cholangitis or cholecystitis with obstruction Plan: Patient had ERCP and is doing well. She has a stent in place. She will follow- up with Dr. Jesus to have elective cholecystectomy. Chris Baig MD Pager: [facility] [address] [place] [address] [place] [address] Office: Hospital Course Operations ERCP Summary of Care Provided Hospital Course: The patient was admitted with choledocholithiasis without acute cholecystitis. Patient underwent ERCP with stent placement. The patient was going to follow-up with Dr. Jesus for elective cholecystectomy. Weight / BMI Weight Weight: 224 lb 6.889 oz Body Mass Index (BMI) 38.5 ABG / Lab / Microbiology Data 09/12/24 06:50 09/12/24 06:50 Laboratory: Laboratory Results - last 24 hr 09/12/24 06:50: Sodium 136, Potassium 4.0, Chloride 105, Carbon Dioxide 25.0, Anion Gap 6, BUN 6 L, Creatinine 0.91, Estim Creat Clear Calc 95.40, Est GFR (MDRD) Af Amer 88, Est GFR (MDRD) Non-Af 73, BUN/Creatinine Ratio 6.6 L, Glucose 90, Calcium 9.2, Total Bilirubin 9.10 H, AST 154 H, ALT 255 H, Alkaline Phosphatase 200 H, Total Protein 7.3, Albumin 3.0 L, Globulin 4.3 H, A lbumin/Globulin Ratio 0.7 L D/C Instructions Discharge Diet: No restrictions Discharge Activity: Return to Normal Activity Lifting Restrictions: no restrictions Call your doctor if your incision/area has: Increased Pain/ Swelling Call your doctor if you observe: Fever of 101 or Higher, Inability to urinate and Inability to have a bowel movement DC O2, CPAP, BIPAP Needs Additional Home O2 Discharge instructions: No DC home with Oxygen: No Please Follow Up With: Nader Jesus MD When: Please call to schedule 1 week follow up appointment. [phone] Meaningful Use Info Meaningful Use Meaningful Use Diagnoses (Choose all that apply): None applicable Ischemic Stroke Statin Dosing Therapy Reference: STATIN DOSE THERAPY REFERENCE: * Patients > 75 years receive moderate or high dose statin therapy. * Patients 75 years or YOUNGER should receive HIGH intensity statin dose unless contraindicated. You will be required to document reason for non-treatment if statin daily dose does not meet guidelines. HIGH DOSE STATIN THERAPY DAILY Atorvastatin > than or = to 40 mg Rosuvastatin > than or = to 20 mg Amlodipine + Atorvastatin > than or = to 2.5/40 mg Ezetimibe + Simvastatin 10/80 mg Simvastatin 80mg Discharge Plan Admission Admit Date/Time: 09/12/24 13:05 Attending Provider: Nader Jesus Primary Care Provider: Ruth Thomas Discharge Orders/Prescriptions Referrals / Follow Up: Ruth Thomas PA-C [Primary Care Provider] - Disposition Disposition (needs filled in before D/C Order can be placed): Home, Self Care
[2024-09-13 08:10] VITALS: BP 113/64; PULSE 60; RESP 18; TEMP 36.3; O2SAT 95
--- NOTE | 2024-09-13 09:07 | CASEMGMT ---
MARCELLA BRENNAN Assessment Face to Face with patient for initial transition planning/care coordination assessment. MARCELLA BRENNAN introduced self and role at [facility], pt voices understanding. Pt is A&Ox4 and is resting comfortably in bed and is calm. Care providers, pharmacy, and demographics verified. Admitting dx: Choledocholithiasis PCP: Ruth Thomas Specialists: Edin (Surgeon) Preferred [facility]acy[facility] Insurance: MMO Prescription Benefit: Yes LNOK: Sven (H) Living Arrangements: Pt lives with her and 9 y/o son in a ranch style home with 2 steps to enter ADLs/IADLs: Ind Transportation: Self, DME: Denies HHC/SNF: Denies Pt?s goal: Home Plan: Home no needs. Pt plans to f/u as an OP for a cholecystectomy. Pt has an appt for the already set up. Pt denies further needs and states feeling safe returning home today with her . Shannen Wharton RN, CM
[2024-09-13 13:04] VITALS: BP 99/81; PULSE 71; RESP 18; TEMP 36.4; O2SAT 96
== END 2024-09-13 13:30 | disposition home or self-care (01) | DRG 421 ==
LOC: ED 20:51 → MS3 21:26
PROVIDERS: Internal Medicine Gastroenterology; Physician Assistant; Admitting Provider Surgery; Emergency Provider Emergency Medicine; PCP Family Medicine; Visit Provider Surgery
PROC: 0FC98ZZ Extirpation of Matter from Common Bile Duct, Via Natural or Artificial Opening Endoscopic (ICD-10-PCS; CPT 43260; principal; 2024-09-12 16:10)
DX: K80.51 Calculus of bile duct without cholangitis or cholecystitis with obstruction (principal); K91.71 Accidental puncture and laceration of a digestive system organ or structure during a digestive system procedure; E66.9 Obesity, unspecified; I95.9 Hypotension, unspecified; K80.65 Calculus of gallbladder and bile duct with chronic cholecystitis with obstruction; Y92.234 Operating room of hospital as the place of occurrence of the external cause; Y65.8 Other specified misadventures during surgical and medical care; Z68.38 Body mass index [BMI] 38.0-38.9, adult; Z85.828 Personal history of other malignant neoplasm of skin
CPT/HCPCS: 36415; 74177; 74330; 76000; 80053; 81001; 81025; 83690; 84703; 85025; 93005; 94668; 99284; Q9967; A4216; J2405

== ENCOUNTER 2024-09-26 15:45 | Inpatient (IN) | payer OTHER, SELFPAY ==
--- NOTE | 2024-09-16 18:30 | PAT.ANESEVAL ---
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 When Was Last Pacemaker Check QUESTION #4 FULL TEXT: You/Your Family Experience fever (hyperthermia) with Anesthesia Last Oral Intake Last Oral intake: Last Oral Intake NPO since Meds taken in AM with sips of water? Meds patient instructed to take am of surgery PONV PONV - road gang supervisor: PONV - road gang supervisor Female Yes 09/16/24 09:22 HX of Motion Sickness Yes 09/16/24 09:22 HX of N/V After Surgery Yes 09/16/24 09:22 Non-Smoker Yes 09/16/24 09:22 Duration of Surgery greater Yes 09/16/24 09:22 than 60 minutes Number of Risk Factors 5 09/16/24 09:22 PONV Score Severe Risk 09/16/24 09:22 Height & Weight Height & Weight: Anesthesia: Height & Weight Height 5 ft 4 in 09/11/24 22:13 Respiratory Assessment Respiratory Assessment - road gang supervisor: Respiratory Tract Infection Hx - road gang supervisor Hx Respiratory Tract Infection No 09/16/24 09:22 STOP Sleep Apnea STOP Sleep Apnea - road gang supervisor: STOP Sleep Apnea - road gang supervisor Hx Hypertension No 09/16/24 09:22 Hx Sleep Apnea No 09/16/24 09:22 CPAP BIPAP Do you snore loudly (louder No 09/16/24 09:22 than talking or can be heard Do you often feel tired/ No 09/16/24 09:22 fatigued/ sleepy during daytime? Has anyone observed you stop No 09/16/24 09:22 breathing during sleep? STOP Results Negative 09/16/24 09:22 QUESTION #5 FULL TEXT : Do you snore loudly (louder than talking or can be heard through closed doors)? 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 Specify any problems Hx of Preganancy in last 3 No 09/16/24 09:22 Months Nurse Filling Out Transfusion DSCHRIBER 09/16/24 09:22 & Questions: Date: 09/16/24 09/16/24 09:22 Time: 0909/16/24 09:22 Patient unable to answer at this time (ie. confused, unrespo /Reproduction History /Reproductive History - road gang supervisor: /Reproductive Hx- road gang supervisor Hx Now No 09/16/24 09:22 Gestational Age (in weeks): EDC: Hx Hx Para Hx Section SAB No 09/16/24 09:22 [facility] Medical History (Updated 09/16/24 @ 09:28 by Greta Esposito) Migraine headache Gastric reflux Non-smoker Basal cell carcinoma Home Medications ?Medication ?Instructions ?Recorded ?Last Taken ?Type magnesium 250 mg tablet 500 mg PO DAILY 09/16/24 Unknown History Allergy/AdvReac Type Severity Reaction Status Date / Time No Known Allergies Allergy Verified 09/16/24 09:20 Surgical History (Updated 09/16/24 @ 09:28 by Greta Esposito) Hx of wisdom tooth extraction History of ERCP Social History Smoking Status: Never smoker Recommendation Anesthesia Recommendation Anesthesia recommendation: OPTIMIZED for anesthesia
[2024-09-26] VITALS (16 sets, daily range): BP systolic 89–118; BP diastolic 41–75; PULSE 71–91; RESP 15–18; TEMP 36.3–37.1; O2SAT 84–98; BMI 38.9
--- NOTE | 2024-09-26 09:04 | EKG12_ITS ---
Test Reason : preop Blood Pressure : */* mmHG Vent. Rate : 62 BPM Atrial Rate : 62 BPM P-R Int : 150 ms QRS Dur : 72 ms QT Int : 434 ms P-R-T Axes : 33 -7 23 degrees QTcB Int : 440 ms Normal sinus rhythm Normal ECG When compared with ECG of 12-Sep-2024 05:15, T wave inversion no longer evident in Lateral leads QT has shortened Confirmed by ANDRE ROJAS, OSMAN ([id number]), editor at large KEVIN BARKSDALE ([id number]) on 09/26/2024 2:03:30 PM Referred By: Nader Jesus Confirmed By: OSMAN POWELL MD
[2024-09-26 09:27] LABS: Internal QC Validated? YES +Cl - CLEAR BKGD; Pregnancy, Urine Negative Negative
[2024-09-26] MEDS: 0.9% Normal Saline (1000mL) 1,000 ML 15 ML IV (09:59)
[2024-09-26] MEDS: INDOCYANINE GREEN 999 MG IV (10:00)
--- NOTE | 2024-09-26 10:15 | PCM.PRE.AN2 ---
ASA Classification* ASA Classification ASA Classification: 2 Assessment & Plan Anesthesia* Anesthesia Assessment Anesthesia Assessment: Discussed sedation and/or anesthesia options, risks, benefits, and alternatives with patient/parents/legal guardian/POA. Questions invited. The patient/parents/legal guardian/POA seems to understand and agrees to proceed with anesthesia plan. Reviewed the physical assessment, medical history, allergy history and patient home medications list prior to surgery/procedure/anesthetic and documented any changes. Performed airway and anesthesia risk assessments. Anesthesia Type Anesthesia Type: General Anesthesia Focused Assessment* Temperature: 98.8 F Pulse Rate: 71 Blood Pressure: 99/69 Respiratory Rate: 16 Pulse Ox: 98 Airway Assessment Mouth opens: >3 cm Mallampati Score: II Focused Labs Anesthesia Preop lab: CBC WBC 5.0 K/mm3 (4.4-11.0) 09/12/24 06:50 RBC 4.44 M/mm3 (4.2-5.4) 09/12/24 06:50 Hgb 12.2 g/dL (12.0-15.0) 09/12/24 06:50 Hct 38.1 % (37-47) 09/12/24 06:50 Plt Count 306 K/mm3 (150-450) 09/12/24 06:50 CHEMISTRY Potassium 4.0 mmol/L (3.5-5.1) 09/12/24 06:50 Sodium 136 mmol/L (136-145) 09/12/24 06:50 BUN 6 mg/dL (7-18) L 09/12/24 06:50 Creatinine 0.91 mg/dL (0.55-1.02) 09/12/24 06:50 Glucose 90 mg/dL (74-106) 09/12/24 06:50 TSH 1.86 uIU/mL (0.358-3.74) 03/02/15 16:30 COAG Urine Test Negative Negative 09/26/24 09:15 Pre-Assessment Diagnosis/Proposed Procedure Planned Operative Procedure(s): ROBOTIC YOUSUF WITH GRAMS Anesthesia History 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 When Was Last Pacemaker Check QUESTION #4 FULL TEXT: You/Your Family Experience fever (hyperthermia) with Anesthesia Last Oral Intake Last Oral intake: Last Oral Intake NPO since 05:00 09/26/24 10:01 Meds taken in AM with sips of No 09/26/24 10:01 water? Meds patient instructed to take am of surgery PONV PONV - agricultural science professor: PONV - agricultural science professor Female Yes 09/16/24 09:22 HX of Motion Sickness Yes 09/16/24 09:22 HX of N/V After Surgery Yes 09/16/24 09:22 Non-Smoker Yes 09/16/24 09:22 Duration of Surgery greater Yes 09/16/24 09:22 than 60 minutes Number of Risk Factors 5 09/16/24 09:22 PONV Score Severe Risk 09/16/24 09:22 Height & Weight Height & Weight: Anesthesia: Height & Weight Height 5 ft 4 in 09/26/24 10:01 Weight: 103 kg 09/26/24 10:01 Body Mass Index (BMI) 38.9 09/26/24 10:01 Respiratory Assessment Respiratory Assessment - agricultural science professor: Respiratory Tract Infection Hx - agricultural science professor Hx Respiratory Tract Infection No 09/16/24 09:22 STOP Sleep Apnea STOP Sleep Apnea - agricultural science professor: STOP Sleep Apnea - agricultural science professor Hx Hypertension No 09/16/24 09:22 Hx Sleep Apnea No 09/16/24 09:22 CPAP BIPAP Do you snore loudly (louder No 09/16/24 09:22 than talking or can be heard Do you often feel tired/ No 09/16/24 09:22 fatigued/ sleepy during daytime? Has anyone observed you stop No 09/16/24 09:22 breathing during sleep? STOP Results Negative 09/16/24 09:22 QUESTION #5 FULL TEXT : Do you snore loudly (louder than talking or can be heard through closed doors)? 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 Specify any problems Hx of Preganancy in last 3 No 09/16/24 09:22 Months Nurse Filling Out Transfusion DSCHRIBER 09/16/24 09:22 & Questions: Date: 09/16/24 09/16/24 09:22 Time: 09:09/16/24 09:22 Patient unable to answer at this time (ie. confused, unrespo /Reproduction History /Reproductive History - agricultural science professor: /Reproductive Hx- agricultural science professor Hx Now No 09/16/24 09:22 Gestational Age (in weeks): EDC: Hx Hx Para Hx Section SAB No 09/16/24 09:22 Active Medications Active Medications: Current Medications Generic Name Dose Route Start Last Admin Trade Name Freq PRN Reason Stop Dose Admin Cefazolin Sodium 2 gm/ N/A 20 mls @ 400 mls/hr 09/26/24 10:30 IV 09/26/24 10:32 PREOP ONE Sodium Chloride 1,000 mls @ 15 mls/hr 09/26/24 09:25 09/26/24 09:59 IV 10/01/24 22:44 15 mls/hr .Q48H ALEJANDRINA Administration Protocol PFSH Medical History Migraine headache Gastric reflux Non-smoker Basal cell carcinoma Home Medications ?Medication ?Instructions ?Recorded ?Last Taken ?Type magnesium 250 mg tablet 500 mg PO DAILY 09/16/24 Unknown History Allergy/AdvReac Type Severity Reaction Status Date / Time No Known Allergies Allergy Verified 09/26/24 09:34 Surgical History Hx of wisdom tooth extraction History of ERCP Social History Smoking Status: Never smoker Review of Systems (Anesthesia) ROS Narrative System reviewed and no additional complaints, except as documented.
--- NOTE | 2024-09-26 10:23 | HP.PCM_ITS ---
History and Physical Date of Admission: 09/26/24 History & Physical Exam 09/11/242121 MR#: [id number] Acct: [id number] Name: DIONISIO ALLEN MARINA Rep #: [id number] : 1985 38 From: Nader Jesus MD PCP: Ruth Thomas PA-C Status: ADM JOSHUA Location: [place] [address] HPI - General General Date of Admission: 09/11/24 HPI Narrative DIONISIO ALLEN, is a 38 F who presents to [facility] ER on direction from gastroenterology after she completed a outpatient ultrasound through [facility] earlier today. She shares that she had presented to her primary care provider after several weeks of noticing yellowing of her skin, darkening of her urine, lightening of her stool, weight loss and anorexia/nausea as well as some generalized itching. When queried as to why she did not present earlier she stated that she believed it was just manifestation of dehydration and she confirms that she has had no pain with this whole episode. Patient's ER visit was marked by CMP that showed evidence of transaminitis as well as hyperbilirubinemia up to 10. Emergency medicine obtained a CT scan of the abdomen pelvis which is yet to be read but shows clear evidence of a distal common bile duct stone at the ampulla. Patient denies any regular medical diagnoses but does have a history of basal cell carcinoma. She denies any history of abdominal surgeries. [facility] Medical History Basal cell carcinoma Medical History no medical history Allergy/AdvReac Type Severity Reaction Status Date / Time No Known Allergies Allergy Verified 09/11/24 18:26 Surgical History no surgical history Social History Smoking Status: Never smoker Vital Signs Vital Signs Vital Signs: 09/11/2418:26 09/11/2418:43 09/11/2420:42 Temperature 98.2 F Temperature Source Temporal Pulse Rate 94 79 Respiratory Rate 15 16 Respiratory Effort Normal Respiratory Pattern Normal Blood Pressure 125/98 H 117/70 Blood Pressure Mean 107 85 Pulse Ox 99 98 Oxygen Delivery Method Room Air Weight Weight: 225 lb 15.581 oz Body Mass Index (BMI) 38.7 Physical Exam Const alert, oriented x3 and no apparent distress Constitutional Narrative: Jaundiced Resp normal respiratory effort GI GI Narrative: Obese, superficial excoriations from itching, yellowing of the skin, nondistended, soft, no scars, no visible or palpable herniation, nontender to palpation, negative Sandhu sign Results Lab / Micro Data 09/11/24 19:15 09/11/24 19:15 Labs: Laboratory Results - last 24 hr 09/11/24 19:15: WBC 7.4, RBC 4.70, Hgb 13.2, Hct 39.8, MCV 84.7, MCH 28.1, MCHC 33.2, RDW Std Deviation 46.7 H, RDW Coeff of Nayan 15.1 H, Plt Count 324, MPV 9.9, Immature Gran % (Auto) 0.300, Neut % (Auto) 59.3, Lymph % (Auto) 25.4, Wetzel % (Auto) 9.5, Eos % (Auto) 4.1, Baso % (Auto) 1.4 H, Absolute Neuts (auto) 4.4, Absolute Lymphs (auto) 1.87, Nucleated RBC % 0, Sodium 134 L, Potassium 3.8, Chloride 101, Carbon Dioxide 27.0, Anion Gap 6, BUN 8, Creatinine 0.92, Estim Creat Clear Calc 94.73, Est GFR (MDRD) Af Amer 87, Est GFR (MDRD) Non-Af 72, BUN/Creatinine Ratio 8.7 L, Glucose 102, Calcium 9.7, Total Bilirubin 10.10 H, AST 160 H, ALT 291 H, Alkaline Phosphatase 218 H, Total Protein 8.2, Albumin 3.5, Globulin 4.7 H, Albumin/Globulin Ratio 0.7 L, Lipase 16 09/11/24 19:30: Serum , Qual NEGATIVE 09/11/24 20:41: Urine Color Yellow, Urine Clarity Clear, Urine pH 6.0, Ur Specific [place] 1.005, Urine Protein Negative, Urine Glucose (UA) Normal, Urine Ketones 5 H, Urine Occult Blood 150 H, Urine Nitrite Negative, Urine Bilirubin 1 H, Urine Urobilinogen 1 H, Ur Leukocyte Esterase Negative, Urine RBC 5-10 SEEN, Urine WBC Not Reportable, Ur Squamous Epith Cells 0-5 SEEN, Urine Bacteria RARE, Urine Mucus 0 SEEN Assessment & Plan Assessment/Plan (1) Choledocholithiasis with obstruction: PLAN: Patient 38-year-old female who is evaluated for new diagnosis of choledocholithiasis after several week history of being jaundice, anorexic, mildly nauseous, acholic stools, but no abdominal pain. She completed outpatient ultrasound earlier today which apparently showed some ductal dilatation but no clear evidence of an obstructing stone. CT imaging completed here in the emergency department appears to show a stone at the ampulla of Vater. I contacted gastroenterology to confirm their availability for ERCP and then presented to patient's bedside. Patient's story is given in the HPI above but this appears to be a relatively straightforward case of choledocholithiasis without evidence of cholecystitis, pancreatitis, or cholangitis. Diagnosis was outlined to the patient and her using hand drawings to illustrate relevant anatomy. I discussed that we would plan for admission with IV antibiotic therapy and tentatively plan for ERCP to be completed by gastroenterology tomorrow. With patient's severely elevated bilirubin I s uggested there is a likely role for biliary tree decompression before proceeding with cholecystectomy. Thus, I would like to tentatively plan for outpatient cholecystectomy in another week or 2. We will seek operating room availability. ?Patient to be offered clear liquid diet this evening but then assume n.p.o. status affected midnight anticipation of procedure ? Consult to gastroenterology I have examined the patient the following changes are noted: Patient underwent ERCP with stone removal and stent placement prior to being discharged home. She arrives today stating that she is less jaundiced and less pruritic. She denies any abdominal pain. Her exam confirms this. Plan today is to proceed for laparoscopic (robotic) cholecystectomy with intraoperative cholangiography. With procedure and postprocedure recovery were reviewed. All remaining questions were answered from patient and her spouse. Consents were confirmed. Will now proceed to the operating room for the procedure.
[2024-09-26] MEDS: Cefazolin 2 GM in Syringe IV (10:56)
[2024-09-26] MEDS: Bupiv/Epi 0.25% 30 ML Vial (12:05)
--- NOTE | 2024-09-26 14:26 | OP.PCM_ITS ---
Operative Report (Standard) Operative Information Date of Procedure: 09/26/24 Pre-Operative Diagnosis: History of choledocholithiasis status post ERCP and stent of common bile duct Post-Operative Diagnosis: 1. History of choledocholithiasis status post ERCP and stent of common bile duct 2. Cholecystitis 3. Iatrogenic common bile duct injury Surgery/Procedure Performed: Aborted laparoscopic (robotic) cholecystectomy scenic arts supervisor: Yes Fast Food Attendant: Carolyn Herrera Tasks completed by assistant manager of operations: Opening & closing and Trocar Type of Anesthesia: General/Supplemental RN Documented Start/Stop Times: Operation Date: 09/26/24 10:30 Case Time Into Pre-Op 09/26/24 09:21 Out of Pre-Op 09/26/24 10:46 Anesthesia Start 09/26/24 10:50 Into Room 09/26/24 10:50 Procedure Start 09/26/24 11:24 Procedure End 09/26/24 14:34 Anesthesia End 09/26/24 14:52 Out of Room 09/26/24 14:52 Into Recovery 09/26/24 15:55 Out of Recovery 09/26/24 17:00 Procedure Start Time: 11:24 Procedure Stop Time: 14:34 Select all DRAINS/GRAFTS/IMPLANTS that apply: Drains Drain details: 15 Salvadorean round Oumar Estimated Blood Loss: 20 Specimen collected: No Description of surgery: After proper identification in the preoperative holding area the patient was brought to the operating room where she was positioned supine on the operating room table. Preoperatively SCDs were connected and antibiotics were administered with 2 g cefazolin. General anesthesia was then induced. Patient's abdomen was prepped and draped in usual sterile fashion. A formal timeout was conducted to confirm both patient and the procedure. Procedure was begun with a supraumbilical incision which was extended deeply down to the level of the fascia. The fascia was elevated and incised, as well as the peritoneum. Stay sutures were placed superiorly inferiorly and the fascia with 0 PDS for later closure. A finger sweep was performed to ensure there were no underlying adhesions and a 12 mm balloon trocar was inserted. Pneumoperitoneum was established at 15 mmHg. Three additional trocars (all 8 mm) were placed in the right and left paramedian positions as well as the left upper quadrant under direct laparoscopic visualization. Inspection of the peritoneum revealed no inadvertent injury to the viscera below. The gallbladder was visualized with inflammatory change leading to adhesions with the adjacent omentum. These adhesions were carefully teased away from the body of the gallbladder and then lysed with the monopolar hook energy. The gallbladder fundus was then grasped and elevated cephalad. Unfortunately the inflammatory change of the gallbladder and its position relative to omentum, stomach, and small bowel led to persistent partial shrouding of the infundibular and neck portions on the gallbladder. To facilitate greater traction away from these structures the peritoneum was opened medially and laterally using monopolar hook. Doing so did appear to modestly improve our traction so I then employed firefly mode to better visualize the biliary structures. Unfortunately this view was extremely limited and initially only the liver was lit well with the ICG. We suspected that this limited view was potentially do to the way the gallbladder was being retracted so this retraction was adjusted before the firefly mode was retried. Upon the second look I was able to see opacification of the distal cystic duct but does not see visualize the common hepatic or common bile duct. With this result I was convinced we were still not visualizing the extent of the cystic duct and its confluence with the common duct so I continued my dissection on the anterior surface of the gallbladder/cystic duct inferiorly. As I was retracting what I believed to be the neck of the gallbladder laterally an inadvertent small rent was made in the wall of the duct resulting in spillage of bile. I found this undesirable but tolerable and proceeded with examining posteriorly to my retraction where identified a moderately large arterial structure which appeared to anastomose to the cystic artery?identifing it as the right hepatic artery. Upon making this observation I immediately called my partner to the room to confirm anatomy. Initially she believed that we were still high on the cystic duct and advocated that we plan to clip where we were. However, when we looked back to the rent in the gallbladder we visualized a stone through the rent. Wanting to see if we dislodged this stone we would get better mobility on the cystic duct we gently tried milking the bile duct and a fashion. As this maneuver was performed we then visualized the plastic biliary stent through the duct opening. With this observation, I immediately ceased any compression of the duct and we identified that this represented a longitudinal shear injury of the common bile duct. A phone call was then made to another partner and we jointly agreed the best cou rse of action was to abort the present operation, leave a drain, and establish transfer with a hepatobiliary surgeon. I suctioned some of the bile that had been pooling in the local vicinity as well as a small clot around the infundibular portion of the gallbladder medially. Unfortunately suctioning this clot resulted in some light bleeding from a branch of the cystic artery. Pressure was applied through a Ray-Juani gauze over this area and once this pressure was relieved we were largely hemostatic, however, given that I was no longer planning to proceed with ligation of the cystic artery and this bleeding's proximity to it, we decided to add hemoblast laparoscopically to this area to better ensure hemostasis. About this time I received a phone call back from Dr. Cisse of the [facility] who confirmed our treatment plan and his willingness to accept the patient in transfer for further care. With hemostasis established in the surgical area, a 15 Salvadorean round Oumar drain was fed into the peritoneal cavity via our right upper quadrant port and was laparoscopically positioned along the inferior margin of the liver adjacent to the gallbladder. The robot was undocked and the previously?inserted Ray-Juani gauze was removed from the peritoneal cavity. Pneumoperitoneum was evacuated and the fascia of the supraumbilical 12 mm port site was closed with interrupted 0 PDS. Patient's right upper quadrant drain was secured at the skin with 3-0 nylon suture and connected to bulb suction. A total of 30 mL of anesthetic was injected at the port sites for postoperative pain control. The skin of each port site was then closed in subcuticular fashion using 4-0 Monocryl. Steri- Strips and bandages were applied as dressings. Patient was then awakened from the anesthetic and taken to PACU for ongoing recovery. Surgical Findings: ? Distended and edematous/thickened gallbladder limiting mobility of the gallbladder ? Limited visibility with the ICG fluorescence showing only opacification of the gallbladder neck and distal cystic duct ? Cystic artery medially with a number of anastomotic branches to the gallbladder and right hepatic also getting chronic branches to the cystic duct ? Common bile duct injury made with shear mechanism during retraction. Visibility of the common bile duct stent through the opening. Rent estimated at 2-3 mm in length (longitudinally oriented) ? Tightly adherent infundibular portion of the gallbladder to lateral aspect of the dilated common hepatic duct Complications Complications: Yes Complication Details: Common bile duct injury Admit VTE Documentation VTE Mechan Device Prophylaxis: SCD's
--- NOTE | 2024-09-26 14:58 | PCM.POST.ANE ---
Anesthesia: Postop Eval I Current Vital Signs Temperature: 97.4 F Pulse Rate: 86 Blood Pressure: 96/41 Respiratory Rate: 16 Pulse Ox: 95 Oxygen Delivery Method: Nasal Cannula Oxygen Flow Rate (L/min): 4 Assessment Airway patent: Yes Spontaneous unlabored respirations: Yes Mental status: Awake and Calm nausea: No Vomiting: No Anesthesia Complication: No Fluid Hydration Crystalloid volume administer (ml): 1,700 Total IV fluid infused: 1,700 Progress Note Anesthesia document: Postop Eval 1 completed: Yes
[2024-09-26] MEDS: Piperacil/Tazobactam 3.375 GM in 0.9% Normal Saline (50mL MB+) 50 ML IV ×2 (16:11→21:22)
[2024-09-26] MEDS: 0.9% Normal Saline (1000mL) 1,000 ML 125 ML IV (16:37)
--- NOTE | 2024-09-26 17:10 | POSTOPAN2_ITS ---
Anesthesia Postop Eval I Sum Postop Eval Completion status Anesthesia document: Postop Eval 1 completed: Yes Anesthesia Postop Eval I Summary Anesthesia Postop Eval I Summary: Anesthesia Postop Eval I: Assessment Summary Airway patent Yes 09/26/24 14:59 PROSTHETIC ASSISTANT.[email or web address] Spontaneous unlabored Yes 09/26/24 14:59 PROSTHETIC ASSISTANT.GDOTT respirations Mental status Awake,Calm 09/26/24 14:59 PROSTHETIC ASSISTANT.GDOTT nausea No 09/26/24 14:59 PROSTHETIC ASSISTANT.GDOTT Vomiting No 09/26/24 14:59 PROSTHETIC ASSISTANT.GDOTT Anesthesia Postop Eval I: Fluid Summary Crystalloid volume administer 1,700 09/26/24 14:59 PROSTHETIC ASSISTANT.GDOTT (ml) Colloids volume administered ( ml) Blood Product volume administered (ml) Total IV fluid infused 1,700 09/26/24 14:59 PROSTHETIC ASSISTANT.GDOTT Anesthesia Postop Eval I: Summary Notes Anesthesia Complication No 09/26/24 14:59 PROSTHETIC ASSISTANT.GDOTT Anesthesia Complication Comment: Post-operative progress note Anesthesia: Postop Eval II Evaluation Mental status: Awake and Calm Pain Level: 1 nausea: No Vomiting: No Complications Anesthesia Complication: No
--- NOTE | 2024-09-26 17:10 | PCM.POSTANE2 ---
Anesthesia Postop Eval I Sum Postop Eval Completion status Anesthesia document: Postop Eval 1 completed: Yes Anesthesia Postop Eval I Summary Anesthesia Postop Eval I Summary: Anesthesia Postop Eval I: Assessment Summary Airway patent Yes 09/26/24 14:59 DIRECTOR OF GROUP SALES.[email or web address] Spontaneous unlabored Yes 09/26/24 14:59 DIRECTOR OF GROUP SALES.[email or web address] respirations Mental status Awake,Calm 09/26/24 14:59 DIRECTOR OF GROUP SALES.GDOTT nausea No 09/26/24 14:59 DIRECTOR OF GROUP SALES.GDOTT Vomiting No 09/26/24 14:59 DIRECTOR OF GROUP SALES.GDOTT Anesthesia Postop Eval I: Fluid Summary Crystalloid volume administer 1,700 09/26/24 14:59 DIRECTOR OF GROUP SALES.GDOTT (ml) Colloids volume administered ( ml) Blood Product volume administered (ml) Total IV fluid infused 1,700 09/26/24 14:59 DIRECTOR OF GROUP SALES.GDOTT Anesthesia Postop Eval I: Summary Notes Anesthesia Complication No 09/26/24 14:59 DIRECTOR OF GROUP SALES.GDOTT Anesthesia Complication Comment: Post-operative progress note Anesthesia: Postop Eval II Evaluation Mental status: Awake and Calm Pain Level: 1 nausea: No Vomiting: No Complications Anesthesia Complication: No
[2024-09-26] MEDS: Pantoprazole Sodium 40 MG in 0.9% Normal Saline (100mL MB+) 100 ML 330 MG IV (17:36)
[2024-09-26] MEDS: 0.9% Normal Saline (100mL Bag) 100 ML 15 ML IV (21:21)
[2024-09-26] MEDS: Acetaminophen 500 MG Tablet PO (21:39)
[2024-09-27] MEDS: 0.9% Normal Saline (1000mL) 1,000 ML 125 ML IV (00:41)
[2024-09-27 00:42] VITALS: BP 99/73; PULSE 70; RESP 16; TEMP 37.1; O2SAT 93
[2024-09-27 05:15] VITALS: BP 86/49; PULSE 55; RESP 16; TEMP 36.8; O2SAT 97
[2024-09-27] MEDS: Piperacil/Tazobactam 3.375 GM in 0.9% Normal Saline (50mL MB+) 50 ML IV ×2 (05:26→14:13)
[2024-09-27 05:43] LABS: Absolute Lymphocyte Count 1.55 X10^3/uL (0.83-4.51); Absolute Neutrophil Count 11.7 X10^3/uL (2.0-7.7); Basophil# 0.04 X10^3/uL; Basophil% 0.3 % (0-1); Hematocrit 33.6 % (37-47); Hemoglobin 10.7 g/dL (12.0-15.0); Lymphocyte # 1.55 X10^3/ul (0.83-4.51); Lymphocyte % 10.9 % (19-41); Mean Corp Hgb Conc 31.8 g/dL (32-36); Mean Corpuscular Hgb 28.2 pg (27.0-32.0); Mean Corpuscular Volume 88.7 fL (81-99); Mean Platelet Vol. 9.7 fl (6.2-12.0); Monocyte# 0.91 X10^3/uL; Monocyte% 6.4 % (0-10); NRBC Flagged by Analyzer 0 % (0-5); Neutrophil # 11.71 X10^3/uL (2.7-7.7); Neutrophil % 81.9 % (47-70); Platelet Count 397 K/mm3 (150-450); RBC Distribution Width CV 14.9 % (11.6-14.6); RBC Distribution Width SD 47.8 fl (35.1-43.9); Red Blood Count 3.79 M/mm3 (4.2-5.4); White Blood Count 14.3 K/mm3 (4.4-11.0)
[2024-09-27 06:37] LABS: ALB/GLOB Ratio 0.7 RATIO (0.9-2.4); AST(SGOT) 51 U/L (15-37); Alanine Aminotransfer ALT/SGPT 82 U/L (13-56); Albumin, Serum 2.6 g/dL (3.2-5.0); Alkaline Phosphatase 93 U/L (45-117); Anion Gap 4 (5-15); BUN 9 mg/dL (7-18); BUN/Creat Ratio 11.5 RATIO (10-20); Calcium,Total 8.4 mg/dL (8.5-10.1); Chloride 109 mmol/L (98-107); Creatinine, Serum 0.78 mg/dL (0.55-1.02); EST Glomerular Filtration Rate 86 mL/min (>60); Est Glom Filt Rate - Afr Amer 104 mL/min (>60); Estimated Creatinine Clearance 112.03 ml/min; Globulin 3.8 g/dL (2.2-4.2); Glucose 121 mg/dL (74-106); Potassium 4.2 mmol/L (3.5-5.1); Protein, Total 6.4 g/dL (6.4-8.2); Sodium Level 140 mmol/L (136-145)
[2024-09-27 06:39] VITALS: BP 98/63; PULSE 58; RESP 16; TEMP 36.9; O2SAT 94
[2024-09-27 08:07] VITALS: BP 101/66; PULSE 68; RESP 18; TEMP 36.6; O2SAT 94
[2024-09-27] MEDS: Acetaminophen 500 MG Tablet PO ×2 (08:16→16:56)
--- NOTE | 2024-09-27 08:53 | CASEMGMT ---
Addendum entered by Marleny Melgoza 09/27/24 17:38: MARCELLA BRENNAN to room to talk w/pt about readmission. Pt has already transferred to tertiary hospital. Original Note: MARCELLA BRENNAN readmission note: Chart review completed. Index admission: Admit 09/12 w/choledocholithiasis.ERCP done and stent placed. Discharged home 09/13 w/plan to f/u with Dr Jesus as an OP for elective cholecystectomy. Current admission: Admit 09/26 robotic cholecystectomy. Pt had went to PCP d/t yellowing of skin, dark urine, wt loss, anorexia, and generalized itching. She then completed US as an OP @ [facility] on day of admission and directed to to go ER by gastroenterology. Dr Jesus consulted and pt went for robotic laparoscopic cholecystectomy. Unable to remove gallbladder d/t adhesions and common bile duct injury occurred. Awaiting transfer to [facility]. Edmundo SANCHEZN MARCELLA BRENNAN
[2024-09-27] MEDS: 0.9% Normal Saline (100mL Bag) 100 ML 15 ML IV (10:37)
[2024-09-27] MEDS: Pantoprazole Sodium 40 MG in 0.9% Normal Saline (100mL MB+) 100 ML 330 MG IV (10:37)
--- NOTE | 2024-09-27 11:41 | PN.SURG_ITS ---
Subjective Subjective Patient seen and examined during AM rounds. She has found resting in bed. She denies any significant abdominal discomfort. She is tolerating advance to clear liquids without issue. I was notified by nursing of some relative hypotension earlier this morning, however, as patient appears to have more fully awake and her blood pressure is now within range of normal (albeit slightly lower but this has been noted previously for patient). Objective Data Objective Data Vital Signs: Vital Signs Temp Pulse Resp BP Pulse Ox O2 Del Method O2 Flow Rate 97.8 F 68 18 101/66 94 Room Air 2 09/27/24 08:07 09/27/24 08:07 09/27/24 08:07 09/27/24 08:07 09/27/24 08:07 09/27/24 08:07 09/26/24 20:53 Oxygen Flow Rate (L/min) 2 Oxygen Delivery Method Room Air Weight: 227 lb 1.218 oz Body Mass Index (BMI) 38.9 Intake & Output: Intake and Output for Last 24 Hours 09/25/24 09/26/24 09/27/24 23:59 23:59 23:59 Intake Total 2531.75 / 2531.75 1250 / 1250 Output Total 600 / 600 600 / 600 Balance 1931.75 / 1931.75 650 / 650 Lab / Micro Data 09/27/24 05:00 09/27/24 05:00 Labs: Laboratory Results - last 24 hr 09/27/24 05:00: WBC 14.3 H, RBC 3.79 L, Hgb 10.7 L, Hct 33.6 L, MCV 88.7, MCH 28.2, MCHC 31.8 L, RDW Std Deviation 47.8 H, RDW Coeff of Nayan 14.9 H, Plt Count 397, MPV 9.7, Immature Gran % (Auto) 0.500, Neut % (Auto) 81.9 H, Lymph % (Auto) 10.9 L, [place] % (Auto) 6.4, Eos % (Auto) 0.0, Baso % (Auto) 0.3, Absolute Neuts (auto) 11.7 H, Absolute Lymphs (auto) 1.55, Nucleated RBC % 0, Sodium 140, Potassium 4.2, Chloride 109 H, Carbon Dioxide 26.0, Anion Gap 4 L, BUN 9, Creatinine 0.78, Estim Creat Clear Calc 112.03, Est GFR (MDRD) Af Amer 104, Est GFR (MDRD) Non-Af 86, BUN/Creatinine Ratio 11.5, Glucose 121 H, Calcium 8.4 L, T otal Bilirubin 1.30 H, AST 51 H, ALT 82 H, Alkaline Phosphatase 93, Total Protein 6.4, Albumin 2.6 L, Globulin 3.8, Albumin/Globulin Ratio 0.7 L Physical Exam Const oriented x3 and no apparent distress Resp normal respiratory effort GI GI Narrative: Mild saturation of dressing around drain site with serosanguineous drainage?otherwise dressings are clean dry and intact. Abdomen is nondistended, soft, minimally tender to palpation about the incision sites. There is no drainage within patient's right upper quadrant JOHNNIE drain. Assessment & Plan Assessment/Plan (1) Calculous cholecystitis: (2) Chronic cholecystitis due to cholelithiasis with choledocholithiasis: (3) Injury of common bile duct during operative procedure: PLAN: Plan Patient is a 38-year-old female who is postoperative day 1 from aborted robot- assisted cholecystectomy for treatment of choledocholithiasis with cholecystitis. Procedure was aborted on account of a intraoperatively does recognized injury to the common bile duct with a small tear. Arrangements were made yesterday for acceptance with hepatobiliary surgery at the [facility], however, patient required inpatient admission as there was no bed availability. Upon checking with [facility] staffing today they state they are hopeful for transfer this afternoon. For her part, Mrs. Diaz is clinically stable and has been weaned of all supplemental oxygen. Her vital signs are within normal limits. Her abdominal exam is benign and there is no output of her JOHNNIE drain. Laboratories demonstrate mild postoperative leukocytosis and, encouragingly, her bilirubin is trended almost to normal following her ERCP earlier this month. Given that our last conversation followed the general anesthetic yesterday I availed myself for any questioning related to the events that transpired yesterday as well as the plan going forward. Patient and her had a few technical questions?including the likelihood of her needing an open cholecystectomy for repair of the injury?I answered those questions regarding yesterday's procedure but remained in deference to receiving team for operative plans on the repair strategy. and Mrs. Diaz expressed their gratitude and understanding for this information. Patient to remain on continuous empiric IV Zosyn and with clear liquid diet for now. Please notify surgery of confirmation of transfer and prepare transfer packet including operative note for receiving team. Nader Jesus MD General Surgery Endocrine Surgery Pager: [facility] [address] [place] [address], [address] [place] [address] Office: [phone] Charges/Coding Visit Charges Inpatient E&M: 66364 Subs Hosp L2
[2024-09-27 13:25] VITALS: BP 99/68; PULSE 66; RESP 16; TEMP 36.4; O2SAT 96
== END 2024-09-27 17:11 | disposition short-term general hospital (02) | DRG 421 ==
LOC: SDC 16:25 → MS3 16:25
PROVIDERS: Anesthesiology; Admitting Provider Surgery; PCP Family Medicine; Referring Provider Surgery; Visit Provider Surgery
PROC: 0FT44ZZ Resection of Gallbladder, Percutaneous Endoscopic Approach (ICD-10-PCS; CPT 47562; principal; 2024-09-26 10:10)
DX: K80.65 Calculus of gallbladder and bile duct with chronic cholecystitis with obstruction (principal); K91.71 Accidental puncture and laceration of a digestive system organ or structure during a digestive system procedure; I95.9 Hypotension, unspecified; Y65.8 Other specified misadventures during surgical and medical care; Y92.234 Operating room of hospital as the place of occurrence of the external cause; Z85.828 Personal history of other malignant neoplasm of skin
CPT/HCPCS: 36415; 80053; 81025; 85025; 93005; J2405